=== PATIENT | male | born 1965 | race Caucasian/White ===

== ENCOUNTER 2025-05-27 13:41 | Inpatient (IN) | payer OTHER, SELFPAY ==
[2025-05-27] VITALS (7 sets, daily range): BP systolic 122–146; BP diastolic 77–97; BMI 17.9; BMI 17.6
--- NOTE | 2025-05-27 09:19 | ED.GENMED ---
History of Present Illness
<Oxana Leyva, COMMUNITY THEATER ACTOR - Last Filed: 05/27/25 14:49>
General
Chief Complaint: Abdominal Pain
Source: patient
Exam Limitations: none
Time Seen by Provider: 05/27/25 09:00
Nursing documentation reviewed up to this point in time: agreed with
History of Present Illness
History of Present Illness:
60-year-old male smoker pack a day, occasional alcohol, with no past medical history states he has not seen a doctor in years presents for right lower quadrant abdominal pain that has been gradually worsening over the past 2 weeks. He denies fever
or chills. Denies nausea or vomiting. Denies chest pain or shortness of breath. His last bowel movement was 4 days ago and he usually goes daily. His appetite has been poor. He took Tylenol prior to arrival and states the pain is now 3/10,
improving.
Past History
<Oxana Leyva, COMMUNITY THEATER ACTOR - Last Filed: 05/27/25 14:49>
Past History
ED Past Medical History: None
Social History
Tobacco: Smoker
Alcohol: Occasional
Personal: Single
Living: alone
Employment: Not employed
Review of Systems
<Oxana Leyva, COMMUNITY THEATER ACTOR - Last Filed: 05/27/25 14:49>
Review of Systems
Allergies reviewed?: Yes
All Other Systems: ROS reviewed and negative except as documented in HPI and ROS
Constitutional: Denies fever
Respiratory: Denies trouble breathing
Cardiac: Denies chest pain
ABD/GI: Reports abdominal pain, constipated and anorexia; Denies nausea, vomiting, diarrhea, bloody stools or black stools
: Denies dysuria or difficulty voiding
Musculoskeletal: Reports no symptoms
Skin: Reports no symptoms
Neurological: Reports no symptoms
Phy Exam
<Oxana Leyva, COMMUNITY THEATER ACTOR - Last Filed: 05/27/25 14:49>
Physical Exam
Physical Exam:
GENERAL: No acute distress. A&Ox3.
CONSTITUTIONAL: Afebrile.
EYES: clear, conjunctivae normal
ENMT: moist mucus membranes, Pharynx nl
RESPIRATORY: Regular respirations, nonlabored, lungs clear.
CARDIOVASCULAR: Regular rate and rhythm, no murmurs, no rubs.
GI: Soft, tender right abdomen with guarding, normal BS
MUSCULOSKELETAL: Moves with ease. Well perfused.
SKIN: Warm, dry, pink
PSYCH: Normal mood and affect. Well kept, interactive and appropriate
NEUROLOGIC: Awake, alert and oriented. No focal neurological deficits
Course
Adityalt;Oxana Leyva, COMMUNITY THEATER ACTOR - Last Filed: 05/27/25 14:49>
Orders/Labs/Results
Orders:
Orders
05/27/25 09:16
Iohexol [Omnipaque] See Protocol PO NOW STA
US Abdomen - Appendix Only Urgent
Comment:
Reason For Exam: RLQ pain
05/27/25 09:17
CT Abd/pel W Iv And Oral Contr Urgent
Comment:
Reason For Exam: RLQ pain
05/27/25 09:19
0.9% Sodium Chloride 1000 ml [Nss] 1,000 ml IV BOLUS
05/27/25 09:23
Complete Blood Count/With Diff Urgent
Comprehensive Metabolic Panel Urgent
Lipase Urgent
05/27/25 11:28
Urinalysis Reflex To Culture Urgent
Date Specimen was Collected: 05/27/25
Time Specimen was Collected: 10:38
Urine Microscopic Reflex Cult Urgent
05/27/25 13:05
Piperacillin/Tazo 3.375 Gram [Zosyn] 3.375 gram in 50 ml IV NOW
05/27/25 13:08
HYDROmorphone [Dilaudid] 1 mg IV NOW STA
Ondansetron Injectable [Zofran] 4 mg IV NOW STA
05/27/25 13:09
Consult Surgery [SURGICAL CONSULT] Urgent
Consulting Provider: Claudio Faustin
Was physician already notified: Yes
Reason for consult: Multiple intra-abdominal abscesses
05/27/25 13:10
Consult Interventional Radiology [IRAD CONSULT] Urgent
Consulting Provider: Terence Downey
Was physician already notified: Yes
Procedure being ordered, including laterality if applicable: Multiple intra-abdominal abscesses
Acknowledgement that appropriate orders are entered: Yes
05/27/25 13:16
Admit/Transfer Patient As Directed
Co-Sign Provider:
Level of Care: Inpatient admission
Assign to:: Medical/Surgical
Physician / Group: rony
Diagnosis: pelvic abscesses
Reason for Hospitalization: pelvic abscesses
Expected length of stay greater than two midnights?: Yes
ELOS- Estimated Length of Stay in days: 2
I certify the patient meets the requirements for IP care: Yes
PRN Pain Medication Management As Directed
May give lesser potent ordered pain med per pt: Yes
preference::
Protocol:: Medication orders for pain may be administered in a
manner that supports deferring to patient preference
when the pt is:
- Requesting an ordered lesser potent pain medication.
Least to most potent pain medications are defined
as: acetaminophen < NSAID < tramadol < opioids
(morphine, oxycodone, hydromorphone).
- Requesting a lesser dose of the same medication IF
ORDERED.
- Requesting a less intrusive route of administration
if both routes are prescribed by the provider (PO <
IV).
05/27/25 13:17
Code Status As Directed
Resuscitation Status: Full Code
Abnormal Lab Results
05/27/25 05/27/25
09:23 11:28
WBC 15.5 H 10^3/uL
(4.8-10.8)
RBC 4.39 L 10^6/uL
(4.70-6.10)
Hgb 12.8 L g/dL
(13.0-18.0)
MCHC 32.0 L g/dL
(33.0-37.0)
RDW 14.7 H %
(11.5-14.5)
Plt Count 666 H 10^3/uL
(130-400)
Abs Immat Gran (auto) 0.1 H 10^3/uL
(0-0.05)
Absolute Neuts (auto) 12.5 H 10^3/uL
(1.4-6.5)
Absolute Monos (auto) 1.3 H 10^3/uL
(0.1-0.6)
Neutrophils % 80.7 H %
(42.2-75.2)
Lymphocytes % 10.1 L %
(20.5-51.1)
Sodium 131 L mmol/L
(135-145)
Carbon Dioxide 20 L mmol/L
(22-30)
Creatinine 0.6 L mg/dL
(0.7-1.3)
Glucose 103 H mg/dl
(70-99)
AST 15 L U/L
(17-59)
Urine Ketones 2+ A
(Negative)
Urine Albumin (Reflex) 2+ A
(Neg - Trace)
05/27/25 09:23
05/27/25 09:23
Vital Signs
Initial and Last Documented VS:
Initial Vital Signs
Temp Pulse Resp BP Pulse Ox
98.8 F 123 16 122/97 98
05/27/25 08:30 05/27/25 08:30 05/27/25 08:30 05/27/25 08:30 05/27/25 08:30
Last Documented Vital Signs
Temp Pulse Resp BP Pulse Ox
99 F 88 12 146/88 99
05/27/25 13:29 05/27/25 11:16 05/27/25 11:16 05/27/25 11:16 05/27/25 11:16
[employer] consulted with Physician
[employer] consulted with physician?: Yes
Name of Physician Consulted: Sher
<Thien Olivarez, DO - Last Filed: 05/27/25 13:43>
Orders/Labs/Results
Orders:
Orders
05/27/25 09:16
Iohexol [Omnipaque] See Protocol PO NOW STA
US Abdomen - Appendix Only Urgent
Comment:
Reason For Exam: RLQ pain
05/27/25 09:17
CT Abd/pel W Iv And Oral Contr Urgent
Comment:
Reason For Exam: RLQ pain
05/27/25 09:19
0.9% Sodium Chloride 1000 ml [Nss] 1,000 ml IV BOLUS
05/27/25 09:23
Complete Blood Count/With Diff Urgent
Comprehensive Metabolic Panel Urgent
Lipase Urgent
05/27/25 11:28
Urinalysis Reflex To Culture Urgent
Date Specimen was Collected: 05/27/25
Time Specimen was Collected: 10:38
Urine Microscopic Reflex Cult Urgent
05/27/25 13:05
Piperacillin/Tazo 3.375 Gram [Zosyn] 3.375 gram in 50 ml IV NOW
05/27/25 13:08
HYDROmorphone [Dilaudid] 1 mg IV NOW STA
Ondansetron Injectable [Zofran] 4 mg IV NOW STA
05/27/25 13:09
Consult Surgery [SURGICAL CONSULT] Urgent
Consulting Provider: Claudio Faustin
Was physician already notified: Yes
Reason for consult: Multiple intra-abdominal abscesses
05/27/25 13:10
Consult Interventional Radiology [IRAD CONSULT] Urgent
Consulting Provider: Terence Downey
Was physician already notified: Yes
Procedure being ordered, including laterality if applicable: Multiple intra-abdominal abscesses
Acknowledgement that appropriate orders are entered: Yes
05/27/25 13:16
Admit/Transfer Patient As Directed
Co-Sign Provider:
Level of Care: Inpatient admission
Assign to:: Medical/Surgical
Physician / Group: rony
Diagnosis: pelvic abscesses
Reason for Hospitalization: pelvic abscesses
Expected length of stay greater than two midnights?: Yes
ELOS- Estimated Length of Stay in days: 2
I certify the patient meets the requirements for IP care: Yes
PRN Pain Medication Management As Directed
May give lesser potent ordered pain med per pt: Yes
preference::
Protocol:: Medication orders for pain may be administered in a
manner that supports deferring to patient preference
when the pt is:
- Requesting an ordered lesser potent pain medication.
Least to most potent pain medications are defined
as: acetaminophen < NSAID < tramadol < opioids
(morphine, oxycodone, hydromorphone).
- Requesting a lesser dose of the same medication IF
ORDERED.
- Requesting a less intrusive route of administration
if both routes are prescribed by the provider (PO <
IV).
05/27/25 13:17
Code Status As Directed
Resuscitation Status: Full Code
Abnormal Lab Results
05/27/25 05/27/25
09:23 11:28
WBC 15.5 H 10^3/uL
(4.8-10.8)
RBC 4.39 L 10^6/uL
(4.70-6.10)
Hgb 12.8 L g/dL
(13.0-18.0)
MCHC 32.0 L g/dL
(33.0-37.0)
RDW 14.7 H %
(11.5-14.5)
Plt Count 666 H 10^3/uL
(130-400)
Abs Immat Gran (auto) 0.1 H 10^3/uL
(0-0.05)
Absolute Neuts (auto) 12.5 H 10^3/uL
(1.4-6.5)
Absolute Monos (auto) 1.3 H 10^3/uL
(0.1-0.6)
Neutrophils % 80.7 H %
(42.2-75.2)
Lymphocytes % 10.1 L %
(20.5-51.1)
Sodium 131 L mmol/L
(135-145)
Carbon Dioxide 20 L mmol/L
(22-30)
Creatinine 0.6 L mg/dL
(0.7-1.3)
Glucose 103 H mg/dl
(70-99)
AST 15 L U/L
(17-59)
Urine Ketones 2+ A
(Negative)
Urine Albumin (Reflex) 2+ A
(Neg - Trace)
05/27/25 09:23
05/27/25 09:23
Vital Signs
Initial and Last Documented VS:
Initial Vital Signs
Temp Pulse Resp BP Pulse Ox
98.8 F 123 16 122/97 98
05/27/25 08:30 05/27/25 08:30 05/27/25 08:30 05/27/25 08:30 05/27/25 08:30
Last Documented Vital Signs
Temp Pulse Resp BP Pulse Ox
99 F 88 12 146/88 99
05/27/25 13:29 05/27/25 11:16 05/27/25 11:16 05/27/25 11:16 05/27/25 11:16
<Oxana Leyva COMMUNITY THEATER ACTOR - Last Filed: 05/27/25 14:49>
MDM/Problems Addressed
Differential Diagnosis Includes:
Appendicitis, bowel obstruction, diverticulitis, colitis, malignancy
MDM/Problems Addressed:
60-year-old male smoker pack a day, occasional alcohol, with no past medical history states he has not seen a doctor in years presents for right lower quadrant abdominal pain that has been gradually worsening over the past 2 weeks. He denies fever
or chills. Denies nausea or vomiting. Denies chest pain or shortness of breath. His last bowel movement was 4 days ago and he usually goes daily. His appetite has been poor. He took Tylenol prior to arrival and states the pain is now 3/10,
improving.
Patient is mildly ill-appearing, almost cachectic
CBC: WBC 15.5
CMP: No clinically significant abnormality
ultrasound radiology report read: Appendix was not visualized
moving on to CAT scan patient, has had p.o. prep
1:[address] abd/pelvis with po and IV contrast: Radiaology report read: IMPRESSION:
Complex CT appearance of the pelvis with multiple rim enhancing pelvic abscesses measuring up to 9.0 cm in the posterior pelvis, 4.9 cm in the right anterior pelvis, and 3.7 cm in the upper pelvis. The collection in the upper pelvis also contains
gas and a small amount of hyperattenuating material that may represent enteric contrast, raising the possibility for a contained perforation. This is in close proximity to small bowel loops in the lower abdomen and is also adjacent to a region of
ill-defined nodular enhancing soft tissue that may represent inflammatory soft tissue/phlegmon or malignant soft tissue. The imaged appendix appears to be within normal limits and a perforated appendicitis would be considered unlikely. Wall
thickening of the sigmoid colon and urinary bladder may be infectious or reactive from the nearby inflammatory process.
Case discussed with Dr. Olivarez who reviewed films
Plan: Admit: Multiple pelvic abscesses questionable contained perforation
Hospitalist, General Surgeon/colorectal doctor Ramin and IR notified of admission.
<Oxana Leyva COMMUNITY THEATER ACTOR - Last Filed: 05/27/25 14:49>
*Pulse Oximetry
SaO2: 98
Oxygen Mode of Delivery: Room air
Patient hypoxic: no
*Critical Care Note
Total Time (30-74mins, 75-104mins- exclusive of procedures): Not Applicable
ED Attending Note
<Oxana Leyva COMMUNITY THEATER ACTOR - Last Filed: 05/27/25 14:49>
-
Portions of this chart may have been created with voice recognition software.� Occasional wrong word or��sound alike� substitutions may have occurred due to the inherent limitations of voice recognition software.
<Thien Olivarez DO - Last Filed: 05/27/25 13:43>
ED Attending Note
Patient seen and examined by attending physician: Yes
I performed the substantive portion of visit, reviewed & personally made and approve the management plan that is documented in note by myself or NANCY.: Yes
ED Attending Note:
I evaluated the patient at bedside. The patient appears somewhat weak and debilitated. Leukocytosis noted and I personally viewed CT imaging and discussed findings with patient. Planning for admission to the hospital.
Discharge Plan
Departure
Patient Disposition: Admit
Date of Disposition: 05/27/25
Time of Disposition: 13:11
Admit to: Med/Surg
Presentation/result/management discussed w/ accepting MD/DO: Hospitalist
Condition: Serious
Discharge Problem:
Intra-abdominal abscess, Abdominal pain
Interventions
Interventions:
*Risk Screen - Suicide Last Done: 05/27/25 08:30
*Neglect/Abuse Screening Last Done: 05/27/25 08:30
UG-Otfnia-Mfacjidmcg Assessment Last Done: 05/27/25 09:36
[2025-05-27] MEDS: OMNIPAQUE 50 ML PO (09:28)
[2025-05-27] MEDS: NSS 1000 IV ×2 (09:28→16:53)
[2025-05-27 09:43] LABS: ALT (SGPT) 13 U/L (0-50); AST (SGOT) 15 U/L (17-59); Albumin 3.7 g/dl (3.5-5.0); Alkaline Phosphatase 111 U/L (38-126); Blood Urea Nitrogen 9 mg/dl (9-20); Calcium 10.0 mg/dl (8.4-10.2); Carbon Dioxide 20 mmol/L (22-30); Chloride 101 mmol/L (98-107); Estimated Creatinine Clearance 103 ml/min; Glucose 103 mg/dl (70-99); Lipase 69 U/L (23-300); Potassium 4.5 mmol/L (3.5-5.1); Sodium 131 mmol/L (135-145); Total Protein 6.7 g/dl (6.3-8.2); eGFR > 60.00
[2025-05-27 09:52] LABS: Hematocrit 40.0 % (39.0-52.0); Hemoglobin 12.8 g/dL (13.0-18.0); Mean Corp Hgb Conc. 32.0 g/dL (33.0-37.0); Mean Corpuscular Volume 91.1 fL (80.0-94.0); Platelet Count 666 10^3/uL (130-400); Red Cell Dist. Width 14.7 % (11.5-14.5)
[2025-05-27 09:53] LABS: Nucleated Red Blood Cells % 0 % (-)
[2025-05-27 11:51] LABS: Urine Character Clear (Clear)
[2025-05-27 13:04] LABS: Urine Red Blood Cell 0-2 /HPF (0-2); Urine White Cell 0-2 /HPF (0-5)
--- NOTE | 2025-05-27 13:20 | HPS.HSE ---
Family Physician
-
Family Physician: Niyah Green
Chief Complaint
-
abdominal pain
History of Present Illness
60-year-old male past medical history of smoking, occasional alcohol use presenting with right lower quadrant abdominal pain ongoing for the past 2 weeks. No fevers or chills. No nausea or vomiting. No chest pain or shortness of breath. Last
bowel movement was 4 days ago. Poor appetite.
No prior surgeries.
He smokes half a pack of cigarettes per day. Drinks alcohol occasionally but no alcohol in 2 weeks. Denies drugs.
Medical History
Past Medical History
Past Medical History: Reports Other (smoking, occasional alcohol use)
Past Surgical History: Reports None
Social History
Tobacco: Smoker
Alcohol: Occasional
Drug: None
Family History
Family History: Not pertinent
Allergies / Home Medications
Allergies reflects when Allergies were last updated in [facility].
Home Medications with original date entered in [facility]
Allergy/Medication List:
Allergies
Allergy/AdvReac Type Severity Reaction Status Date / Time
No Known Allergies Allergy Unverified 05/27/25 09:23
Review of Systems
-
History Source: Patient
A 12 point ROS was completed and negative except as noted: Yes
Constitutional: Reports No Symptoms
EENT: Reports No Symptoms
Respiratory: Reports No Symptoms
Cardiac: Reports No Symptoms
Abdomen/GI: Reports See HPI
: Reports No Symptoms
Musculoskeletal: Reports No Symptoms
Skin: Reports No Symptoms
Neurological: Reports No Symptoms
Endocrine: Reports No Symptoms
Hematologic/Lymphatic: Reports No Symptoms
Psych: Reports No Symptoms
Physical Exam
Vital Signs
Vital Signs
Temp Pulse Resp BP Pulse Ox
98.8 F 88 12 146/88 99
05/27/25 08:30 05/27/25 11:16 05/27/25 11:16 05/27/25 11:16 05/27/25 11:16
Physical Exam
General: Well Developed, Well Nourished and No Apparent Distress
HEENT: NormoCephalic, Moist mucous membranes and Atraumatic
Respiratory: Clear
Cardiac: S1/S2 and Regular Rhythm; No Murmur or Rub
GI: Soft, Non Distended, Normal Bowel Sounds and Tender (RLQ ); No Organomegaly
Rectal: Deferred by Provider
Musculoskeletal: No Clubbing, No Cyanosis and No Edema
Skin: No Rash
Neuro: Nonfocal/grossly intact
Laboratory Results
-
05/27/25 09:23
05/27/25 09:23
Laboratory Results
Total Bilirubin 0.7 mg/dl (0.2-1.3) 05/27/25 09:23
AST 15 U/L (17-59) L 05/27/25 09:23
ALT 13 U/L (0-50) 05/27/25 09:23
Alkaline Phosphatase 111 U/L (38-126) 05/27/25 09:23
Lipase 69 U/L (23-300) 05/27/25 09:23
Data Reviewed
-
Lab Data: Labs Reviewed by me
Old Records: Reviewed
Impression/Plan
-
IMPRESSION:
PLAN:
# Multiple rim-enhancing pelvic abscesses with possible contained perforation
-Abdominal ultrasound without any notable finding
- CT abdomen pelvis shows multiple rim-enhancing pelvic abscesses measuring up to 9 cm, 4.9 cm in the right anterior pelvis, 3.7 cm in the upper pelvis, collection in the upper pelvis also contains gas and small amount of hyperattenuating material
that may represent enteric contrast possibly for contained perforation, close proximity to small bowel loops in the lower abdomen adjacent to region of ill-defined nodular enhancing soft tissue that may represent inflammatory soft tissue phlegmon or
malignant soft tissue, wall thickening of the sigmoid colon urinary bladder may be infectious or reactive
- Leukocytosis
- Urinalysis unremarkable
- N.p.o.
- IV fluids
-Zosyn
- IR consulted for drainage
-Dilaudid for pain
- Colorectal surgery consulted
History of smoking
Occasional alcohol use
- No alcohol use in 2 weeks
Full code
DVT prophylaxis�heparin
N.p.o.
[2025-05-27] MEDS: DILAUDID 1 MG IV ×2 (13:24→17:18)
[2025-05-27] MEDS: ZOFRAN 4 MG IV (13:24)
[2025-05-27] MEDS: ZOSYN 50 IV ×2 (13:24→19:48)
--- NOTE | 2025-05-27 14:03 | CON.GS ---
Consultation
-
Date/Time Consultation Performed: 05/27/25 1400
Medical History
-
Chief Complaint: abdominal pain
History of Present Illness:
Mr Duran is a 60 yo 1/2 ppd smoker who has never been hospitalized or had surgery and has not seen a doctor in some time who presents with abdominal pain for the last 2 weeks or more. He notes the pain has been diffuse and sometimes hurting in one
place more than the other. He denies fevers or chills. He has been taking Tylenol intermittently for some relief. He has been eating very little for the past several weeks but denies nausea or vomiting. He reports regular BM's previously, but has
not passed a BM x3-4 days. He has been intermittently passing flatus. He denies voiding difficulty. He does not own a scale but feels he may have been losing some weight since this all began but is unsure. Yesterday, his pain worsened and became
more localized to the right suprapubic area with associated tenderness on exam today in the ED.
Past Medical History
Past Medical History: None
Past Surgical History: None and Other (no prior colonoscopy)
Social History
Tobacco: Smoker (1/2 ppd)
Alcohol: Occasional
Personal: Single
Living: Alone
Family History
Family History: Reviewed & Not Pertinent
Allergies / Home Medications
Allergy/AdvReac Type Severity Reaction Status Date / Time
No Known Allergies Allergy Unverified 05/27/25 09:23
Review of Systems
-
History Source: Patient
All other systems: Negative unless noted
A 10 point review of systems was completed, and was negative except as per HPI.
Physical Exam
Vital Signs
Temp Pulse Resp BP Pulse Ox
99 F 88 12 146/88 99
05/27/25 13:29 05/27/25 11:16 05/27/25 11:16 05/27/25 11:16 05/27/25 11:16
05/26/25 05/27/25 05/28/25
06:59 06:59 06:59
Actual Weight 55 kg
Body Mass Index (BMI) 17.9
Lab Results
05/27/25:23
05/27/25:
WBC 15.5 10^3/uL (4.8-10.8) H 05/27/25:
Hgb 12.8 g/dL (13.0-18.0) L 05/27/25:
Hct 40.0 % (39.0-52.0) 05/27/25:
Plt Count 666 10^3/uL (130-400) H 05/27/25:
Abs Immat Gran (auto) 0.1 10^3/uL (0-0.05) H 05/27/25:
Neutrophils % 80.7 % (42.2-75.2) H 05/27/25:
Physical Exam
General: No Apparent Distress and Comfortable; Negative Well Nourished (underweight)
HEENT: Moist Mucous Membranes
GI: Soft, Tender (right suprapubic) and Distended (minimal)
Skin: Warm and Dry
Neuro: Awake, Alert and AO x 3
Psych: Calm
Data Reviewed
-
CT Scan: Image Personally Visualized and interpreted, Report Reviewed by me, Discussed with Physician and Discussed with Patient
Labs: Labs Reviewed by me, Discussed with Physician and Discussed with Patient
Old Records: Reviewed
Assessment / Plan
-
Mr Duran is a 60 yo 1/2 ppd smoker who has never been hospitalized or had surgery and has not seen a doctor in some time who presents with abdominal pain for the last 2 weeks or more now more localized to the right suprapubic area. No n/v but poor
PO intake, ?weight loss (BMI <18). No bm x3-4 days but passing flatus. Leukocytosis present with WBC of 15.5, mild microcytic anemia with thrombocytosis. Mild hyponatremia with metabolic acidosis on BMP. Tachycardic on arrival, now resolved.
Afebrile with stable BP.
CT imaging reviewed with abdominal abscesses noted posterior pelvis of 9 x 4.9cm, unclear if communicating with a 3.7cm abscess in the upper pelvis which contains gas and possibly oral contrast administered prior the study suggestive of a contained
small bowel perforation. This upper pelvic abscess is adjacent to a soft tissue density that is poorly defined (phlegmon vs malignancy). Reactive thickening of surrounding structures. Appendix normal. Unclear etiology but suspect malignancy vs small
bowel diverticulum.
Plan:
IR consulted for abscess drainage, will request cytology as well as culture
Keep NPO
Started on IV Zosyn in the ED will continue
Trend labs, check CEA, CA19-9 in am
No emergent surgery planned today, will attempt IR drainage first
[2025-05-27] MEDS: TUMS CHEWABLE TABLET 200 MG PO (14:15)
--- NOTE | 2025-05-27 16:10 | EDCM ---
CM reviewed chart and met with pt bedside in ED. Lives alone in 1 story home with basement, 2 [address].
Independent in ADLs, personal care and ambulation at baseline. No assistive devices, no DME.
Admits he has not see a physician in a long time. Believes he has prescription coverage but has never used it.
No hx VN or SNF
PCP: Niyah Green, pt is not sure if he has ever seen her
Pharmacy: [facility]
Anticipate discharge home, CM will continue to follow ofr any discharge planning needs.
[2025-05-27] MEDS: PROTONIX 40 MG PO (17:17)
--- NOTE | 2025-05-27 17:45 | PTCARENOTE ---
Pt arrived to [facility] on a stretcher. Pt ambulated from stretcher to bed w/o incident. Rhonchi/diminished at the bases at 99% RA. Pt voided on admission. IVF hung. NPO. 1x order of dilauded for pain and 1x order protonix for indigestion. Admission
questions answered. Bed locked and in lowest position. Care ongoing.
[2025-05-27] MEDS: HEPARIN 5000 UNITS SC (19:49)
[2025-05-27] MEDS: DILAUDID 0.5 MG IV (21:27)
[2025-05-28] VITALS (13 sets, daily range): BP systolic 74–163; BP diastolic 66–90; BMI 17.6
[2025-05-28] MEDS: DILAUDID 0.5 MG IV ×5 (01:27→21:13)
[2025-05-28] MEDS: ZOSYN 50 IV ×4 (01:28→19:14)
[2025-05-28 06:30] LABS: Hematocrit 36.4 % (39.0-52.0); Hemoglobin 11.3 g/dL (13.0-18.0); Mean Corp Hgb Conc. 31.0 g/dL (33.0-37.0); Mean Corpuscular Volume 93.6 fL (80.0-94.0); Nucleated Red Blood Cells % 0 % (-); Platelet Count 645 10^3/uL (130-400); Red Cell Dist. Width 15.1 % (11.5-14.5)
[2025-05-28 06:47] LABS: ALT (SGPT) 11 U/L (0-50); AST (SGOT) 15 U/L (17-59); Albumin 3.1 g/dl (3.5-5.0); Alkaline Phosphatase 160 U/L (38-126); Blood Urea Nitrogen 6 mg/dl (9-20); Calcium 9.0 mg/dl (8.4-10.2); Carbon Dioxide 23 mmol/L (22-30); Chloride 101 mmol/L (98-107); Estimated Creatinine Clearance 102 ml/min; Glucose 72 mg/dl (70-99); Potassium 4.8 mmol/L (3.5-5.1); Sodium 133 mmol/L (135-145); Total Protein 5.8 g/dl (6.3-8.2); eGFR > 60.00
[2025-05-28 07:17] LABS: CEA 5.14 ng/ml
[2025-05-28] MEDS: NSS 1000 IV (07:52)
[2025-05-28] MEDS: HEPARIN 5000 UNITS SC ×2 (07:52→19:13)
[2025-05-28 09:18] LABS: Triglycerides 131 mg/dl (10-149)
[2025-05-28 09:57] LABS: Prealbumin (Transthyretin) 10.4 mg/dl (17.6-36.0)
--- NOTE | 2025-05-28 10:00 | W.PN.GS2 ---
Addendum entered and electronically signed by Toni Haskins MD 05/28/25 10:55:
I saw and examined the patient independently.
The Gritting Machine Operator's note was reviewed and I agree with the note, assessment and plan except where noted below.
Comment: 60-year-old male presents with abdominal pain for 2 weeks and found to have intra-abdominal abscesses unclear etiology. Perforated small bowel Meckel's diverticulum versus sigmoid diverticulitis. Clinically stable, exam benign.
N.p.o., IV fluids, IV antibiotics. Banana bag ordered.
IR consult for drainage, he does have a window for at least one of the pockets though there is an intra loop collection that will be difficult to drain.
Will plan for a Gastrografin enema at some point this admission once his contrast from the CT scan has washed through to rule out sigmoid diverticulitis.
Original Note:
Today's Communication / Plan
-
IR drainage of abscess
Keep NPO and on IV abx
Assessment / Plan
-
Mr Durna is a 60 yo 1/2 ppd smoker who has never been hospitalized or had surgery and has not seen a doctor in some time who presents with abdominal pain for the last 2 weeks or more now more localized to the right suprapubic area. No n/v but poor
PO intake, ?weight loss (BMI <18). No bm x3-4 days but passing flatus.
CT imaging with intraabdominal abscesses noted; posterior pelvis of 9 x 4.9cm, unclear if communicating with a 3.7cm abscess in the upper pelvis which contains gas and possibly oral contrast administered prior the study. There is an upper pelvic
abscess is adjacent to a soft tissue density that is poorly defined. Reactive thickening of surrounding structures including sigmoid colon. Appendix normal.
Contained bowel perforation; Unclear if from a large vs small bowel diverticulum vs less likely small bowel malignancy (CEA 5.14, Ca19-9 pending).
Leukocytosis present and trending up
Microcytic anemia
No fevers, no further tachycardia, BP stable
Nutritional labs send with low albumin/prealbumin. Folate, thiamine, b12 and iron panel pending
Plan:
IR consulted for abscess drainage, will request cytology as well as culture
Banana bag x1 then resume IV NSS.
Nutrition consult; low BMI, low albumin/prealbumin
Keep NPO
Continue IV abx
Trend labs
Eventual Gastrografin enema to better differentiate location of perforation
No emergent surgery planned today but may require later this admission pending patient course and source of perforation
Subjective Data
-
Date of Service: May 28, 2025
Pt seen and examined at bedside with Dr. Philip. Moreno n/v. Pain improved overall.
Objective Data
-
Intake and Output
05/27/25 05/28/25 05/29/25
06:59 06:59 06:59
Intake Total 1080 / 1080
Balance 1080 / 1080
Intake:
IV fluids (Total) 980 / 980
IV piggybacks 100 / 100
Other:
Number of approximated MODERATE 2
amounts of urine
Vital Signs
Temp Pulse Resp BP Pulse Ox
99.0 F 80 18 163/78 97
05/28/25 07:23 05/28/25 07:23 05/28/25 07:23 05/28/25 07:23 05/28/25 07:23
Lab Results
05/28/25 05:39
05/28/25 05:39
Calcium 9.0 mg/dl (8.4-10.2) 05/28/25 05:39
Total Bilirubin 0.6 mg/dl (0.2-1.3) 05/28/25 05:39
AST 15 U/L (17-59) L 05/28/25 05:39
ALT 11 U/L (0-50) 05/28/25 05:39
Alkaline Phosphatase 160 U/L (38-126) H 05/28/25 05:39
Total Protein 5.8 g/dl (6.3-8.2) L 05/28/25 05:39
Albumin 3.1 g/dl (3.5-5.0) L 05/28/25 05:39
Physical Exam
-
NAD, thin
ABD soft, tender suprapubically, nd
[2025-05-28] MEDS: MULTIVITAMIN 1011 ML IV (10:18)
[2025-05-28] MEDS: MULTIVITAMIN 1011 MG IV (10:18)
[2025-05-28 10:57] LABS: INR 1.03; PT 13.8 Sec (11.4-14.6)
[2025-05-28 11:00] LABS: Folate 12.1 ng/ml (2.76-20); Vitamin B12 871 pg/ml (239-931)
[2025-05-28 11:25] LABS: Iron 37 ug/dl (49-181)
[2025-05-28 11:34] LABS: Total Iron Binding Capacity 178 ug/dl (261-462)
--- NOTE | 2025-05-28 11:46 | W.PN.HOSP.TC ---
Today's Communication/Plan
-
monitor vitals
see plan
cw IVF
IR for draiange
cw abx
Monitor leukocytosis
Assessment / Plan
Assessment / Plan
General: Well Developed, Well Nourished and No Apparent Distress
HEENT: NormoCephalic, Moist mucous membranes and Atraumatic
Respiratory: Clear
Cardiac: S1/S2 and Regular Rhythm; No Murmur or Rub
GI: Soft, Non Distended, Normal Bowel Sounds and Tender (RLQ )
Rectal: Deferred by Provider
Musculoskeletal: No Clubbing, No Cyanosis and No Edema
Skin: No Rash
Neuro: Nonfocal/grossly intact
Multiple rim-enhancing pelvic abscesses with possible contained perforation
Sepsis (leukocytosis, tachycardia) likely 2/2 above. Blood culture not checked on admission. Check now
-Abdominal ultrasound without any notable finding
- CT abdomen pelvis shows multiple rim-enhancing pelvic abscesses measuring up to 9 cm, 4.9 cm in the right anterior pelvis, 3.7 cm in the upper pelvis, collection in the upper pelvis also contains gas and small amount of hyperattenuating material
that may represent enteric contrast possibly for contained perforation, close proximity to small bowel loops in the lower abdomen adjacent to region of ill-defined nodular enhancing soft tissue that may represent inflammatory soft tissue phlegmon or
malignant soft tissue, wall thickening of the sigmoid colon urinary bladder may be infectious or reactive
- Leukocytosis
- Urinalysis unremarkable
- N.p.o.
- IV fluids
-Zosyn
- IR consulted for drainage; postdrainage likely will need ID evaluation for antibiotics
-Dilaudid for pain
- surgery following
History of smoking
Refusing nicotine patch
Occasional alcohol use
- No alcohol use in 2 weeks
Full code
DVT prophylaxis�heparin
N.p.o.
Anticipated Discharge: > 48 hours
Subjective/Interval History
-
Date of Service: May 28, 2025
has pain
Objective Data
-
Labs:
Laboratory Results
05/28/25 05/28/25
05:39 10:32
WBC 18.1 H
Hgb 11.3 L
Hct 36.4 L
Plt Count 645 H
PT 13.8
INR 1.03
Sodium 133 L
Potassium 4.8
Chloride 101
Carbon Dioxide 23
BUN 6 L
Creatinine 0.6 L
Glucose 72
Calcium 9.0
Total Bilirubin 0.6
AST 15 L
ALT 11
Alkaline Phosphatase 160 H
Vital Signs:
Vital Signs
Temp Pulse Resp BP Pulse Ox
99.0 F 80 18 163/78 97
05/28/25 07:23 05/28/25 07:23 05/28/25 07:23 05/28/25 07:23 05/28/25 07:23
I&O
05/27/25 05/28/25 05/29/25
06:59 06:59 06:59
Intake Total 1080 / 1080
Balance 1080 / 1080
[2025-05-28] MEDS: APRESOLINE 5 MG IV (12:48)
--- NOTE | 2025-05-28 14:20 | CM ---
CM following re: discharge planning.
Reviewed pt's chart.
Per chart review, IR drainage of abscess, continue supportive care.
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
D/C plan: home with anticipated no needs.
CM will follow with discharge plan updates as hospitalization progresses
--- NOTE | 2025-05-28 16:46 | W.PN.UPDATE ---
Update Note
Progress Note Update
CT guided pelvic drainage catheter placed, yielding 130 cc of bloody purulent fluid. Sent for laboratory analysis.
[2025-05-28] MEDS: D5LR 1000 IV (21:15)
[2025-05-29] MEDS: ZOSYN 50 IV ×4 (01:12→19:23)
[2025-05-29] MEDS: DILAUDID 0.5 MG IV ×5 (01:25→23:33)
[2025-05-29] MEDS: D5LR 1000 IV ×2 (06:08→22:26)
[2025-05-29 07:25] VITALS: BP 143/72
[2025-05-29] MEDS: HEPARIN 5000 UNITS SC ×2 (07:32→19:23)
[2025-05-29 08:09] LABS: ALT (SGPT) < 10 U/L (0-50); AST (SGOT) 13 U/L (17-59); Albumin 2.5 g/dl (3.5-5.0); Alkaline Phosphatase 183 U/L (38-126); Blood Urea Nitrogen 4 mg/dl (9-20); Calcium 8.6 mg/dl (8.4-10.2); Carbon Dioxide 24 mmol/L (22-30); Chloride 102 mmol/L (98-107); Estimated Creatinine Clearance 102 ml/min; Glucose 101 mg/dl (70-99); Potassium 4.0 mmol/L (3.5-5.1); Sodium 129 mmol/L (135-145); Total Protein 4.9 g/dl (6.3-8.2); eGFR > 60.00
[2025-05-29 08:34] LABS: Hematocrit 31.4 % (39.0-52.0); Hemoglobin 9.8 g/dL (13.0-18.0); Mean Corp Hgb Conc. 31.2 g/dL (33.0-37.0); Mean Corpuscular Volume 90.5 fL (80.0-94.0); Nucleated Red Blood Cells % 0 % (-); Platelet Count 508 10^3/uL (130-400); Red Cell Dist. Width 14.9 % (11.5-14.5)
--- NOTE | 2025-05-29 09:23 | PN.CDI ---
CDI
- -
CDI:
Physician Documentation Request
Admit Date: 05/27/25 13:41
Dear Doctor,
Patient admitted for pelvic abscess.
ER Physician Documentation: 'Patient is mildly ill-appearing'
Please review the following and provide your response in the progress notes.
Clinical Indicators:
Height: 5' 9'
Weight: 119 lbs
BMI: 17.6
If possible, please provide an associated diagnosis related to the abnormal BMI, such as:
Cachectic
Underweight
BMI is not significant
Other
BMI < or = to 19.9
Underweight
Weight Loss
Cachectic
Anorexia
Use of terms such as suspected, likely, concern for, or probable (associated with a specific diagnosis that is being evaluated, monitored, or treated as if it exists) are acceptable and can be coded in the inpatient setting, when documented at the
time of discharge.
Thank you,
Collette Moura RN, BSN
CDI Specialist
Available via [facility] text
Please use your independent medical judgment in providing your response.
--- NOTE | 2025-05-29 09:56 | W.PN.GS2 ---
Today's Communication / Plan
-
-- Clears
-- X-ray abdomen
-- Abx: Zosyn
Assessment / Plan
-
Patient is a 60 yo M p/w abdominal pain for the last [address] imaging with intraabdominal abscesses noted; posterior pelvis of 9 x 4.9cm, unclear if communicating with a 3.7cm abscess in the upper pelvis which contains gas and possibly oral contrast administered prior the study. There is an upper pelvic
abscess is adjacent to a soft tissue density that is poorly defined. Reactive thickening of surrounding structures including sigmoid colon. Appendix normal.
Contained bowel perforation; Unclear if from a large vs small bowel diverticulum vs less likely small bowel malignancy (CEA 5.14, Ca19-9 pending).
S/p IR trans-rectal drainage with removal of 130 cc bloody purulent output
Micro: pending
AVSS
WBC normalized
Microcytic anemia, slight drift
Nutritional labs send with low albumin/prealbumin. Folate, thiamine, b12 and iron panel pending
Clinically mildly improved. WBC normalized. Source (small bowel/Meckel's versus colonic) remains unclear. Will need further imaging workup to better delineate in the days to come. Trial of clears for today. Abdominal x-ray to assess contrast
progression and ability to perform Gastrografin enema.
Plan:
-- Clears
-- X-ray abdomen
-- Abx: Zosyn
-- Eventual Gastrografin enema or drain study to better differentiate location of perforation
-- No emergent surgery planned today but may require later this admission pending patient course and source of perforation
Subjective Data
-
Date of Service: May 29, 2025
Abdominal discomfort feels improved, difficult to tell if he is distracted by his drain site/buttock pain. No nausea or vomiting. Passing small amounts of flatus. No BM. Afebrile.
Objective Data
-
Intake and Output
05/28/25 05/29/25 05/30/25
06:59 06:59 06:59
Intake Total 1080 / 1080 1750 / 1750
Output Total 70
Balance 1080 / 1080 1680 / 1680
Intake:
Oral fluids 240 / 240
IV fluids (Total) 980 / 980 1150 / 1150
IV piggybacks 100 / 100 350 / 350
Amount instilled into Drain (
Total)
Left Pelvis Placed in IR
Output:
Drain Output (Total)
Left Pelvis Placed in IR
Other:
How many times incontinent 1
MODERATE amount urine
Number of approximated MODERATE 2 2
amounts of urine
Vital Signs
Temp Pulse Resp BP Pulse Ox
98.6 F 66 18 143/72 97
05/29/25 07:25 05/29/25 07:25 05/29/25 07:25 05/29/25 07:25 05/29/25 07:25
Lab Results
05/29/25 06:43
05/29/25 06:43
Calcium 8.6 mg/dl (8.4-10.2) 05/29/25 06:43
Total Bilirubin 0.5 mg/dl (0.2-1.3) 05/29/25 06:43
AST 13 U/L (17-59) L 05/29/25 06:43
ALT < 10 U/L (0-50) 05/29/25 06:43
Alkaline Phosphatase 183 U/L (38-126) H 05/29/25 06:43
Total Protein 4.9 g/dl (6.3-8.2) L 05/29/25 06:43
Albumin 2.5 g/dl (3.5-5.0) L 05/29/25 06:43
Physical Exam
-
Gen: NAD
Abd: soft, NT/ND, non-peritoneal
Rectal: IR drain with thin purulent output, non-bilious more feculent
Patient has a singleton catheter: No
Patient has a central line: No
--- NOTE | 2025-05-29 11:25 | VNURNOTE ---
Addendum entered by Hodan Luna RN 05/29/25 13:14:
[facility] referral placed in [facility].
Addendum entered by Hodan Luna RN 05/29/25 13:12:
Pt now agreeable to [facility]. Reviewed with him that VN will contact him within 1-2 days after DC. [place] Text to primary nurse requesting extra NSS flushes be sent home w/ pt when cleared for DC. Updated Dr Kang.
Original Note:
[facility] liaison met with patient at bedside. Explained services: short-term, intermittent, skilled. Explained homebound criteria and that VN would assist/teach with drain care and flushing. Patient declines VN stating that he can learn drain care
and flushing here in hospital. DELTA Melendrez and surgeon Dr Kang notified. No referral placed.
--- NOTE | 2025-05-29 11:50 | W.PN.HOSP.TC ---
Addendum entered and electronically signed by Ethan Tapia MD 05/29/25 14:39:
Underweight
Original Note:
Today's Communication/Plan
-
Monitor vital signs see plan
Continue with Zosyn
Continue with fluids
Monitor sodium
Maintain drain per IR and surgery
Clears
pain control
Assessment / Plan
Assessment / Plan
General: Well Developed, Well Nourished and No Apparent Distress
HEENT: NormoCephalic, Moist mucous membranes and Atraumatic
Respiratory: Clear
Cardiac: S1/S2 and Regular Rhythm; No Murmur or Rub
GI: Soft, Non Distended, Normal Bowel Sounds and Tender (RLQ )
Musculoskeletal: No Edema
Neuro: Nonfocal/grossly intact
Multiple rim-enhancing pelvic abscesses with possible contained perforation
Sepsis (leukocytosis, tachycardia) likely 2/2 above. Blood culture not checked on admission. Per blood culture 05/28 NGTD
-Abdominal ultrasound without any notable finding
- CT abdomen pelvis shows multiple rim-enhancing pelvic abscesses measuring up to 9 cm, 4.9 cm in the right anterior pelvis, 3.7 cm in the upper pelvis, collection in the upper pelvis also contains gas and small amount of hyperattenuating material
that may represent enteric contrast possibly for contained perforation, close proximity to small bowel loops in the lower abdomen adjacent to region of ill-defined nodular enhancing soft tissue that may represent inflammatory soft tissue phlegmon or
malignant soft tissue, wall thickening of the sigmoid colon urinary bladder may be infectious or reactive
Status post IR drainage 05/28. Follow culture. Currently growing viridans strep. ID evaluation. Maintain drain per IR and surgery
- Leukocytosis
- Urinalysis unremarkable
Now started on clears, monitor
- IV fluids
-Zosyn
-Dilaudid for pain
- surgery following
Hyponatremia
Monitor
Continue IVF
Anemia
Unsure if this is acute on chronic
Check iron panel, B12, folate
History of smoking
Refusing nicotine patch
Occasional alcohol use
- No alcohol use in 2 weeks
Full code
DVT prophylaxis�heparin
Anticipated Discharge: > 48 hours
Subjective/Interval History
-
Date of Service: May 29, 2025
Feels pain is better
Objective Data
-
Labs:
Laboratory Results
05/29/25
06:43
WBC 10.3
Hgb 9.8 L
Hct 31.4 L
Plt Count 508 H D
Sodium 129 L
Potassium 4.0
Chloride 102
Carbon Dioxide 24
BUN 4 L
Creatinine 0.5 L
Glucose 101 H
Calcium 8.6
Total Bilirubin 0.5
AST 13 L
ALT < 10
Alkaline Phosphatase 183 H
Vital Signs:
Vital Signs
Temp Pulse Resp BP Pulse Ox
98.6 F 66 18 143/72 97
05/29/25 07:25 05/29/25 07:25 05/29/25 07:25 05/29/25 07:25 05/29/25 07:25
I&O
05/28/25 05/29/25 05/30/25
06:59 06:59 06:59
Intake Total 1080 / 1080 1750 / 1750
Output Total 70 / 70
Balance 1080 / 1080 1680 / 1680
--- NOTE | 2025-05-29 12:08 | CM ---
CM following re: discharge planning.
Reviewed pt's chart.
Per MD pt will need VN services for drain care. Pt is aware, expressed his agreement after talking in details regarding the importance of VN services and pt preferred [facility]. A referral to [facility] made.
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
Please fax discharge instructions to [facility] at [phone].
D/C plan: home with anticipated no needs.
CM will follow with discharge plan updates as hospitalization progresses
--- NOTE | 2025-05-29 12:09 | CON.ID ---
Consultation
-
Date/Time Consultation Requested: 05/29/25 11:52
Date/Time Consultation Performed: 05/29/25 12:09
Requesting Provider: Dr Tapia
Performing Provider: Dr Kern
Reason for Consultation: intraabdominal abscess
Chief Complaint / Past History
Chief Complaint
abdominal pain
History of Present Illness
Mr Duran is a 60 year old male without significant history beyond smoking who developed a two week history of abdominal pain - generally diffuse - no fever or chills. He has been taking tylenol with limited improvement. Appetite has been poor.
He has continued with bowel movements and flatus though no BM in the last 3-4 days prior to arrival.
Since arrival here he has been afebrile, bp stable, wbc initially 15, peaked at 18.1 and now 10.3, hgb 9.8, plt 508, L shift has na 129 today, cr 0.5, t bili 0.5, ast 13, alt 10, CEA 5, CA 19-9 pending, CT a/p complex multiple rim enhancing pelvic
abscesses, possible contained perforation - unclear if in proximity to the small bowel and if mass or phlegmon, appendix is within normal limits, wall thickening from sigmoid and urinary bladder thought to be reactive. A drain was placed by IR
yielding 130 ccs of bloody/purulent fluid and a wound culture has grown VGS, patient is on zosyn. 05/29 Xray shows contrast from two days previously now in the large bowel.
Past History
Additional Past Medical History:
none, limited contact with medical providers
Past Surgical History: None
Allergy History:
No Known Allergies Allergy (Unverified 05/27/25 09:23)
Medications Reviewed: Yes
Social History
Tobacco: Smoker (1/2 ppd)
Alcohol: Occasional
Drug: None
Family History
Family History: Not Pertinent
Review of Systems
Review of Systems
A 12 point ROS was completed and negative except as noted: Yes
Constitutional: Reports No Symptoms
EENT: Reports No Symptoms
Respiratory: Reports No Symptoms
Cardiac: Reports No Symptoms
Abdomen/GI: Reports See HPI
: Reports No Symptoms
Musculoskeletal: Reports No Symptoms
Skin: Reports No Symptoms
Neurological: Reports No Symptoms
Endocrine: Reports No Symptoms
Hematologic/Lymphatic: Reports No Symptoms
Psych: Reports No Symptoms
Vital Signs
Temp Pulse Resp BP Pulse Ox
98.6 F 66 18 143/72 97
05/29/25 07:25 05/29/25 07:25 05/29/25 07:25 05/29/25 07:25 05/29/25 07:25
Physical Exam
Physical Exam
Constitutional: No Acute Distress
Cardiovascular: Regular Rate and S1/S2; Negative Murmur or Rub
Pulmonary: Clear and Symmetric; Negative Wheezes, Rales or Rhonchi
Gastrointestinal: Soft, Non Tender, Non Distended and Normal Bowel Sounds
Skin: Warm and Dry; Negative Rash or Jaundice
Lines: Other (drain purulent/blood tinged)
Lab / Diagnostic Study Results
05/29/25 06:43
05/29/25 06:43
Abs Immat Gran (auto) 0.1 10^3/uL (0-0.05) H 05/29/25 06:43
Absolute Neuts (auto) 7.8 10^3/uL (1.4-6.5) H 05/29/25 06:43
Absolute Lymphs (auto) 1.4 10^3/uL (1.2-3.4) 05/29/25 06:43
Absolute Monos (auto) 0.9 10^3/uL (0.1-0.6) H 05/29/25 06:43
Absolute Basos (auto) 0.0 10^3/uL (0-0.2) 05/29/25 06:43
Immature Gran % 0.8 % (0-0.5) H 05/29/25 06:43
Neutrophils % 75.7 % (42.2-75.2) H 05/29/25 06:43
Lymphocytes % 13.8 % (20.5-51.1) L 05/29/25 06:43
Monocytes % 9.0 % (1.7-9.3) 05/29/25 06:43
Eosinophils % 0.4 % (0-6) 05/29/25 06:43
Basophils % 0.3 % (0-2) 05/29/25 06:43
PT 13.8 Sec (11.4-14.6) 05/28/25 10:32
INR 1.03 05/28/25 10:32
Ur Squamous Epith Cells 3-5 /LPF (Few) 05/27/25 11:28
Microbiology Results
Micro:
05/28/25 15:40 Wound Culture - Preliminary
Abdomen Viridans Streptococcus Group
Gram Stain - Preliminary
05/28/25 14:15 Blood Culture - Pending
Blood/Venous
05/28/25 13:43 Blood Culture - Pending
Blood/Venous
Assessment / Plan
Intraabdominal abscesses
- unclear cause - workup per surgery
- s/p IR guided drain placement - output remains purulent/blood tinged
- culture with VGS
- agree with zosyn
[2025-05-29 15:12] VITALS: BP 153/90
[2025-05-29 15:58] LABS: Iron 45 ug/dl (49-181)
[2025-05-29 16:08] LABS: Total Iron Binding Capacity 151 ug/dl (261-462)
[2025-05-29 16:24] LABS: Transferrin 131 mg/dL (200-360)
[2025-05-29 16:33] LABS: CA 19-9 38 U/mL (<=35)
[2025-05-29 17:32] LABS: Folate 10.9 ng/ml (2.76-20)
[2025-05-29] MEDS: DILAUDID 0.25 MG IV (19:32)
[2025-05-29 21:29] LABS: Ferritin 389.0 ng/ml (17.9-464.0)
[2025-05-29 23:00] VITALS: BP 131/68
[2025-05-29 23:47] LABS: Vitamin B12 804 pg/ml (239-931)
--- NOTE | 2025-05-30 02:24 | DOWNTIME ---
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 Downtime documentation of patient's care, including medication administrations, has been reconciled in the electronic record per guidelines. Refer to the
patient's paper chart under the miscellaneous tab to see printed paper medication records and downtime forms.
[2025-05-30] MEDS: ZOSYN 50 IV ×4 (02:31→19:26)
[2025-05-30] MEDS: DILAUDID 0.5 MG IV ×4 (03:50→20:49)
[2025-05-30 06:25] LABS: Hematocrit 31.4 % (39.0-52.0); Hemoglobin 9.9 g/dL (13.0-18.0); Mean Corp Hgb Conc. 31.5 g/dL (33.0-37.0); Mean Corpuscular Volume 93.2 fL (80.0-94.0); Nucleated Red Blood Cells % 0 % (-); Platelet Count 537 10^3/uL (130-400); Red Cell Dist. Width 14.8 % (11.5-14.5)
[2025-05-30 06:46] LABS: ALT (SGPT) 12 U/L (0-50); AST (SGOT) 17 U/L (17-59); Albumin 2.5 g/dl (3.5-5.0); Alkaline Phosphatase 151 U/L (38-126); Blood Urea Nitrogen < 2 mg/dl (9-20); Calcium 8.8 mg/dl (8.4-10.2); Carbon Dioxide 29 mmol/L (22-30); Chloride 105 mmol/L (98-107); Estimated Creatinine Clearance 102 ml/min; Glucose 119 mg/dl (70-99); Potassium 3.7 mmol/L (3.5-5.1); Sodium 132 mmol/L (135-145); Total Protein 5.0 g/dl (6.3-8.2); eGFR > 60.00
[2025-05-30 07:38] VITALS: BP 136/76
[2025-05-30] MEDS: HEPARIN 5000 UNITS SC ×2 (08:05→19:27)
--- NOTE | 2025-05-30 10:49 | W.PN.GS2 ---
Addendum entered and electronically signed by Dimitry Ward MD 05/30/25 12:49:
KUB reviewed: PO contrast reaches the distal colon and area of the drain; will proceed with repeat CT today with IV contrast only
Original Note:
Today's Communication / Plan
-
F/U KUB, GGE when po contrast cleared, cont abx, cont cld
Assessment / Plan
-
Patient is a 60 yo M p/w abdominal pain for the last [address] imaging with intraabdominal abscesses noted; posterior pelvis of 9 x 4.9cm, unclear if communicating with a 3.7cm abscess in the upper pelvis which contains gas and possibly oral contrast administered prior the study. There is an upper pelvic
abscess is adjacent to a soft tissue density that is poorly defined. Reactive thickening of surrounding structures including sigmoid colon. Appendix normal.
Contained bowel perforation; Unclear if from a large vs small bowel diverticulum vs less likely small bowel malignancy (CEA 5.14, Ca19-9 pending).
S/p IR trans-rectal drainage with removal of 130 cc bloody purulent output
Micro: Strep viridans, GNR
AVSS
WBC normalized
Microcytic anemia, slight drift
Hypoalbuminemia
Clinically improved. WBC normalized. Source (small bowel/Meckel's versus colonic) remains unclear. Will need further imaging workup to better delineate in the days to come. Remain on clears for today. Abdominal x-ray to assess contrast
progression and ability to perform Gastrografin enema.
Plan:
-- Clears
-- X-ray abdomen
-- Abx: Zosyn
-- Eventual Gastrografin enema or drain study to better differentiate location of perforation
-- No emergent surgery planned today but may require later this admission pending patient course and source of perforation
Subjective Data
-
Date of Service: May 30, 2025
AFVSS, no complaints, feeling 'better,' deniea n/v, denies abd pain, c/o pain around drain site
Objective Data
-
Intake and Output
05/29/25 05/30/25 05/31/25
06:59 06:59 06:59
Intake Total 1750 / 1750 2029 / 2029
Output Total 70 / 70 30 / 30
Balance 1680 / 1680 1999 / 1999
Intake:
Oral fluids 240 / 240 840 / 840
IV fluids (Total) 1150 / 1150 1080 / 1080
IV piggybacks 350 / 350 100 / 100
Amount instilled into Drain (
Total)
Left Pelvis Placed in IR
Output:
Drain Output (Total) 70 / 70 30 / 30
Left Pelvis Placed in IR 70 / 70 30 / 30
Other:
How many times incontinent 1
MODERATE amount urine
Number of approximated MODERATE 2 2
amounts of urine
Vital Signs
Temp Pulse Resp BP Pulse Ox
98.2 F 64 16 136/76 98
05/30/25 07:38 05/30/25 07:38 05/30/25 07:38 05/30/25 07:38 05/30/25 07:38
Lab Results
05/30/25 06:00
05/30/25 06:00
Calcium 8.8 mg/dl (8.4-10.2) 05/30/25 06:00
Total Bilirubin 0.4 mg/dl (0.2-1.3) 05/30/25 06:00
AST 17 U/L (17-59) 05/30/25 06:00
ALT 12 U/L (0-50) 05/30/25 06:00
Alkaline Phosphatase 151 U/L (38-126) H 05/30/25 06:00
Total Protein 5.0 g/dl (6.3-8.2) L 05/30/25 06:00
Albumin 2.5 g/dl (3.5-5.0) L 05/30/25 06:00
Physical Exam
-
Gen: NAD
Abd: soft, nt, drain seropurulent with blood tinge
Patient has a singleton catheter: No
Patient has a central line: No
--- NOTE | 2025-05-30 10:52 | PTCARENOTE ---
Verbal consent obtained for HIV testing. Care ongoing.
--- NOTE | 2025-05-30 11:18 | W.PN.ID1 ---
Date of Service
Date of Service: May 30, 2025
Today's Communication
continue zosyn
Assessment / Plan
Intraabdominal abscesses
- unclear cause - workup per surgery
- s/p IR guided drain placement - output remains purulent/blood tinged
- culture with VGS and GNR
- continue with zosyn
Chief Complaint
-: Other (intraabdominal abscess)
Subjective / Review of Systems
afebrile
bp stable
tolerating current therapies
Vital Signs / Physical Exam
Vital Signs
Vital Signs
Temp Pulse Resp BP Pulse Ox
98.2 F 64 16 136/76 98
05/30/25 07:38 05/30/25 07:38 05/30/25 07:38 05/30/25 07:38 05/30/25 07:38
Physical Exam
Constitutional: No Acute Distress
Cardiovascular: Regular Rate and S1/S2; Negative Murmur or Rub
Pulmonary: Clear and Symmetric; Negative Wheezes or Rales
Gastrointestinal: Soft, Non Tender, Non Distended and Normal Bowel Sounds
Skin: Warm and Dry; Negative Rash or Jaundice
Objective Data
Lab Data
Lab Results
05/30/25 06:00
05/30/25 06:00
PT 13.8 Sec (11.4-14.6) 05/28/25 10:32
INR 1.03 05/28/25 10:32
Estimated Creat Clear 102 ml/min 05/30/25 06:00
Total Bilirubin 0.4 mg/dl (0.2-1.3) 05/30/25 06:00
AST 17 U/L (17-59) 05/30/25 06:00
ALT 12 U/L (0-50) 05/30/25 06:00
Alkaline Phosphatase 151 U/L (38-126) H 05/30/25 06:00
Most recent labs reviewed.
Micro Results:
05/28/25 15:40 Wound Culture - Preliminary
Abdomen Gram negative bacilli
Viridans Streptococcus Group
Gram Stain - Preliminary
05/28/25 14:15 Blood Culture - Preliminary
Blood/Venous No Growth in 24 hours- Final report to follow
05/28/25 13:43 Blood Culture - Preliminary
Blood/Venous No Growth in 24 hours- Final report to follow
[2025-05-30 11:34] LABS: Vitamin B1, Whole Blood 137 nmol/L (70-180)
[2025-05-30 12:04] LABS: Hepatitis B Surface Antigen Negative (Negative)
[2025-05-30 12:21] LABS: Hepatitis C Antibody Negative (Negative)
[2025-05-30] MEDS: D5LR 1000 IV (12:23)
--- NOTE | 2025-05-30 13:10 | W.PN.HOSP.TC ---
Today's Communication/Plan
-
Monitor vital signs see plan
Continue with Zosyn
Repeat CT per surgery today
Monitor drain
Assessment / Plan
Assessment / Plan
General: Well Developed, Well Nourished and No Apparent Distress
HEENT: NormoCephalic, Moist mucous membranes and Atraumatic
Respiratory: Clear
Cardiac: S1/S2 and Regular Rhythm; No Murmur or Rub
GI: Soft, Non Distended, Normal Bowel Sounds, +drain
Musculoskeletal: No Edema
Neuro: Nonfocal/grossly intact
Multiple rim-enhancing pelvic abscesses with possible contained perforation
Sepsis (leukocytosis, tachycardia) likely 2/2 above. Blood culture not checked on admission. Per blood culture 05/28 NGTD
-Abdominal ultrasound without any notable finding
- CT abdomen pelvis shows multiple rim-enhancing pelvic abscesses measuring up to 9 cm, 4.9 cm in the right anterior pelvis, 3.7 cm in the upper pelvis, collection in the upper pelvis also contains gas and small amount of hyperattenuating material
that may represent enteric contrast possibly for contained perforation, close proximity to small bowel loops in the lower abdomen adjacent to region of ill-defined nodular enhancing soft tissue that may represent inflammatory soft tissue phlegmon or
malignant soft tissue, wall thickening of the sigmoid colon urinary bladder may be infectious or reactive
Status post IR drainage 05/28. Follow culture. Currently growing viridans strep. ID following. Maintain drain per IR and surgery
- Leukocytosis
- Urinalysis unremarkable
Now started on clears, monitor
-cw Zosyn
-Dilaudid for pain
- surgery following, repeat CT with IV contrast today
Needlestick injury per RN
Patient agreeable for HIV and hepatitis per protocol. Pending
Hyponatremia
Monitor
Anemia
Good iron stores, B12 and folate. Appears likely from chronic disease
History of smoking
Refusing nicotine patch
Occasional alcohol use
- No alcohol use in 2 weeks
Underweight
Full code
DVT prophylaxis�heparin
Anticipated Discharge: > 48 hours
Subjective/Interval History
-
Date of Service: May 30, 2025
Denies nausea
Objective Data
-
Labs:
Laboratory Results
05/30/25
06:00
WBC 9.8
Hgb 9.9 L
Hct 31.4 L
Plt Count 537 H
Sodium 132 L
Potassium 3.7
Chloride 105
Carbon Dioxide 29
BUN < 2 L
Creatinine 0.6 L
Glucose 119 H
Calcium 8.8
Total Bilirubin 0.4
AST 17
ALT 12
Alkaline Phosphatase 151 H
Vital Signs:
Vital Signs
Temp Pulse Resp BP Pulse Ox
98.2 F 64 16 136/76 98
05/30/25 07:38 05/30/25 07:38 05/30/25 07:38 05/30/25 07:38 05/30/25 07:38
I&O
05/29/25 05/30/25 05/31/25
06:59 06:59 06:59
Intake Total 1750 / 1750 2029 / 2029
Output Total 70 / 70 30 / 30
Balance 1680 / 1680 1999
--- NOTE | 2025-05-30 13:25 | CM ---
CM following re: discharge planning.
Reviewed pt's chart.
Per MD, Repeat CT per surgery today. Monitor drain. Continue antibiotics, continue supportive care.
[facility] liaison following.
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
Please fax discharge instructions to [facility] at [phone].
D/C plan: home with [facility] and family support.
CM will follow with discharge plan updates as hospitalization progresses
[2025-05-30 15:20] VITALS: BP 127/75
[2025-05-30] MEDS: D5LR IV (20:42)
[2025-05-30 23:00] VITALS: BP 135/76
[2025-05-31] MEDS: DILAUDID 0.5 MG IV ×4 (01:42→19:45)
[2025-05-31] MEDS: ZOSYN 50 IV ×4 (01:42→19:40)
[2025-05-31 06:16] LABS: Hematocrit 29.7 % (39.0-52.0); Hemoglobin 9.6 g/dL (13.0-18.0); Mean Corp Hgb Conc. 32.3 g/dL (33.0-37.0); Mean Corpuscular Volume 91.7 fL (80.0-94.0); Nucleated Red Blood Cells % 0 % (-); Platelet Count 567 10^3/uL (130-400); Red Cell Dist. Width 14.8 % (11.5-14.5)
[2025-05-31 06:38] LABS: ALT (SGPT) 12 U/L (0-50); AST (SGOT) 14 U/L (17-59); Albumin 2.5 g/dl (3.5-5.0); Alkaline Phosphatase 128 U/L (38-126); Blood Urea Nitrogen < 2 mg/dl (9-20); Calcium 8.6 mg/dl (8.4-10.2); Carbon Dioxide 28 mmol/L (22-30); Chloride 103 mmol/L (98-107); Estimated Creatinine Clearance 102 ml/min; Glucose 95 mg/dl (70-99); Potassium 3.7 mmol/L (3.5-5.1); Sodium 132 mmol/L (135-145); Total Protein 4.9 g/dl (6.3-8.2); eGFR > 60.00
[2025-05-31 07:05] VITALS: BP 130/74
[2025-05-31] MEDS: HEPARIN 5000 UNITS SC ×2 (08:50→19:40)
--- NOTE | 2025-05-31 09:32 | W.PN.GS2 ---
Addendum entered and electronically signed by Stewart Min MD 05/31/25 16:25:
Patient seen and examined this a.m. with surgical ANALYSIS EVALUATOR. Agree with documented progress note.
Overall patient reports continued improvement. Denies abdominal pain/discomfort. Only residual pain at this point is at his IR drain catheter exit site in the gluteal region. No nausea. States he is hungry. Multiple bowel movements after
contrast CT imaging yesterday
AFVSS
WBC down to 11.8
NAD AAO x 3
ABD: Soft, nondistended, no significant tenderness. No rebound rigidity or guarding.
IR drain to bulb; scant bloody purulent fluid
CT imaging 05/30 reviewed. The pelvic abscess nearly completely resolved. Continued residual sigmoid inflammation and wall thickening but contrast passes through the region without extravasation. Prior 2 small abscesses stable/improving. There
does not appear to be a 6.5 cm abscess as described it is closer to 3.5 cm. Confirmed with interventional radiology that there does not appear to be any residual collections amenable to IR drainage.
Assessment/plan: 60-year-old male with sigmoid diverticulitis complicated by intra-abdominal abscesses
Appear to have adequate source control with transgluteal pelvic drain. Smaller intra-abdominal collections just above the pelvic brim/right lower quadrant which appear stable/slightly improved.
Continue Zosyn
Full liquid diet today and probable dietary advancement if continued clinical improvement.
Maintain IR drain -eventual tube study to confirm there is no residual communication with the colon prior to removal
Original Note:
Today's Communication / Plan
-
c/w drain, abx
fld
Assessment / Plan
-
Patient is a 60 yo M p/w abdominal pain for the last [address] imaging with intraabdominal abscesses noted; posterior pelvis of 9 x 4.9cm, unclear if communicating with a 3.7cm abscess in the upper pelvis which contains gas and possibly oral contrast administered prior the study. There is an upper pelvic
abscess is adjacent to a soft tissue density that is poorly defined. Reactive thickening of surrounding structures including sigmoid colon. Appendix normal.
PPD #3 IR trans-rectal drainage with removal of 130 cc bloody purulent output initially
Micro: Strep viridans, GNR
Repeat Ct on 05/30 with abscesses noted to be decreased in size. D/W IR and personally reviewed film: the '6.5 cm' anterior pelvic abscess is measured at 3.5 cm. Not in a location amenable to IR drainage. Given interval improvement, the perforation
more clearly from sigmoid colon diverticulitis not small bowel pathology.
AVSS
Mild leukocytosis, increased from previous
Microcytic anemia, slight drift
Hypoalbuminemia, low BMI
Hyponatremia improving
Abdominal pain resolved. Passing gas/stools. Clinically improving overall.
Plan:
-- Ok for FLD
-- CW IR drain
-- Abx: Zosyn, ID following. Await final cx.
-- Thus far improving without emergent surgery, will continue to hold off on operative intervention. Discussed recommendation for interval surgery in the coming months with colonoscopy preop with patient.
Subjective Data
-
Date of Service: May 31, 2025
Pt seen and examined at bedside with Dr. Min. Denies n/v. Passing gas. Formed Bm then 3 loose ones. Good appetite. Eager for discharge. No abdominal pain, but discomfort at site of drain.
Objective Data
-
Intake and Output
05/30/25 05/31/25 06/01/25
06:59 06:59 06:59
Intake Total 2029 3320 / 3320
Output Total
Balance 1999 / 1999 3300 / 3300
Intake:
Oral fluids 840 / 840 2160 / 2160
IV fluids (Total) 1080 / 1080 950 / 950
IV piggybacks 100 / 100 200 / 200
Amount instilled into Drain (
Total)
Left Pelvis Placed in IR
Output:
Drain Output (Total)
Left Pelvis Placed in IR
Other:
Number of approximated MODERATE 2 2
amounts of urine
Vital Signs
Temp Pulse Resp BP Pulse Ox
98.1 F 78 18 130/74 97
05/31/25 07:05 05/31/25 07:05 05/31/25 07:05 05/31/25 07:05 05/31/25 07:05
Lab Results
05/31/25 05:30
05/31/25 05:30
Calcium 8.6 mg/dl (8.4-10.2) 05/31/25 05:30
Total Bilirubin 0.4 mg/dl (0.2-1.3) 05/31/25 05:30
AST 14 U/L (17-59) L 05/31/25 05:30
ALT 12 U/L (0-50) 05/31/25 05:30
Alkaline Phosphatase 128 U/L (38-126) H 05/31/25 05:30
Total Protein 4.9 g/dl (6.3-8.2) L 05/31/25 05:30
Albumin 2.5 g/dl (3.5-5.0) L 05/31/25 05:30
Physical Exam
-
Gen: NAD
Abd: soft, nt, drain seropurulent with blood tinge
Patient has a singleton catheter: No
Patient has a central line: No
--- NOTE | 2025-05-31 12:10 | W.PN.HOSP.TC ---
Today's Communication/Plan
-
Monitor vital signs see plan
Continue with abx
fulls
pain control
follow cx
Assessment / Plan
Assessment / Plan
General: Well Developed, Well Nourished and No Apparent Distress
HEENT: NormoCephalic, Moist mucous membranes and Atraumatic
Respiratory: Clear
Cardiac: S1/S2 and Regular Rhythm; No Murmur or Rub
GI: Soft, Non Distended, Normal Bowel Sounds, +drain
Musculoskeletal: No Edema
Neuro: Nonfocal/grossly intact
Multiple rim-enhancing pelvic abscesses with possible contained perforation
Sepsis (leukocytosis, tachycardia) likely 2/2 above. Blood culture not checked on admission. Per blood culture 05/28 NGTD
-Abdominal ultrasound without any notable finding
- CT abdomen pelvis shows multiple rim-enhancing pelvic abscesses measuring up to 9 cm, 4.9 cm in the right anterior pelvis, 3.7 cm in the upper pelvis, collection in the upper pelvis also contains gas and small amount of hyperattenuating material
that may represent enteric contrast possibly for contained perforation, close proximity to small bowel loops in the lower abdomen adjacent to region of ill-defined nodular enhancing soft tissue that may represent inflammatory soft tissue phlegmon or
malignant soft tissue, wall thickening of the sigmoid colon urinary bladder may be infectious or reactive
Status post IR drainage 05/28. Follow culture. Currently growing viridans strep. ID following. Maintain drain per IR and surgery
- Leukocytosis
- Urinalysis unremarkable
Now started on clears, monitor
-cw Zosyn
-Dilaudid for pain
- surgery following, repeat CT 05/30 with abscesses noted to be decreasing in size. Per surgery, hold off on operative intervention. Will need colonoscopy in near future
Needlestick injury per RN
Patient agreeable for HIV and hepatitis per protocol. results negative
Hyponatremia
Monitor
Anemia
Good iron stores, B12 and folate. Appears likely from chronic disease
History of smoking
Refusing nicotine patch
Occasional alcohol use
- No alcohol use in 2 weeks
Underweight
Full code
DVT prophylaxis�heparin
Anticipated Discharge: 24 - 48 hours
Subjective/Interval History
-
Date of Service: May 31, 2025
Feeling better
Objective Data
-
Labs:
Laboratory Results
05/31/25
05:30
WBC 11.8 H
Hgb 9.6 L
Hct 29.7 L
Plt Count 567 H
Sodium 132 L
Potassium 3.7
Chloride 103
Carbon Dioxide 28
BUN < 2 L
Creatinine 0.6 L
Glucose 95
Calcium 8.6
Total Bilirubin 0.4
AST 14 L
ALT 12
Alkaline Phosphatase 128 H
Vital Signs:
Vital Signs
Temp Pulse Resp BP Pulse Ox
98.1 F 78 18 130/74 97
05/31/25 07:05 05/31/25 07:05 05/31/25 07:05 05/31/25 07:05 05/31/25 07:05
I&O
05/30/25 05/31/25 06/01/25
06:59 06:59 06:59
Intake Total 2029 3320 / 3320
Output Total
Balance 1999 3300 / 3300
--- NOTE | 2025-05-31 12:37 | CM ---
Chart reviewed; Anticipated Discharge: 24 - 48 hours
Case Management will continue to monitor and support discharge plan as needed
[2025-05-31 15:15] VITALS: BP 141/74
--- NOTE | 2025-05-31 15:32 | W.PN.ID1 ---
Date of Service
Date of Service: May 31, 2025
Today's Communication
continue zosyn
Assessment / Plan
Intraabdominal abscesses
- s/p IR guided drain placement - output remains purulent/blood tinged; abscess sizes decreased overall
- culture with VGS and Morganella
- continue with zosyn today
Chief Complaint
-: Other (intraabdominal abscess)
Subjective / Review of Systems
afebrile
bp stable
Vital Signs / Physical Exam
Vital Signs
Vital Signs
Temp Pulse Resp BP Pulse Ox
98.2 F 70 18 141/74 98
05/31/25 15:15 05/31/25 15:15 05/31/25 15:15 05/31/25 15:15 05/31/25 15:15
Physical Exam
Constitutional: No Acute Distress
Cardiovascular: Regular Rate and S1/S2; Negative Murmur or Rub
Pulmonary: Clear and Symmetric; Negative Wheezes or Rales
Gastrointestinal: Soft, Non Tender, Non Distended and Normal Bowel Sounds
Skin: Warm and Dry; Negative Rash or Jaundice
Objective Data
Lab Data
Lab Results
05/31/25 05:30
05/31/25 05:30
PT 13.8 Sec (11.4-14.6) 05/28/25 10:32
INR 1.03 05/28/25 10:32
Estimated Creat Clear 102 ml/min 05/31/25 05:30
Total Bilirubin 0.4 mg/dl (0.2-1.3) 05/31/25 05:30
AST 14 U/L (17-59) L 05/31/25 05:30
ALT 12 U/L (0-50) 05/31/25 05:30
Alkaline Phosphatase 128 U/L (38-126) H 05/31/25 05:30
Most recent labs reviewed.
Micro Results:
05/28/25 14:15 Blood Culture - Preliminary
Blood/Venous No Growth in 72 hours- Final report to follow
05/28/25 13:43 Blood Culture - Preliminary
Blood/Venous No Growth in 72 hours- Final report to follow
05/28/25 15:40 Wound Culture - Final
Abdomen Morganella morganii
Viridans Streptococcus Group
Gram Stain - Final
[2025-05-31 23:00] VITALS: BP 126/68
[2025-06-01] MEDS: ZOSYN 50 IV ×2 (01:05→08:49)
[2025-06-01] MEDS: DILAUDID 0.5 MG IV (01:25)
[2025-06-01 07:40] LABS: Hematocrit 31.8 % (39.0-52.0); Hemoglobin 10.2 g/dL (13.0-18.0); Mean Corp Hgb Conc. 32.1 g/dL (33.0-37.0); Mean Corpuscular Volume 92.4 fL (80.0-94.0); Nucleated Red Blood Cells % 0 % (-); Platelet Count 598 10^3/uL (130-400); Red Cell Dist. Width 15.1 % (11.5-14.5)
[2025-06-01 08:00] VITALS: BP 135/81
[2025-06-01 08:16] LABS: ALT (SGPT) 11 U/L (0-50); AST (SGOT) 14 U/L (17-59); Albumin 2.6 g/dl (3.5-5.0); Alkaline Phosphatase 119 U/L (38-126); Blood Urea Nitrogen < 2 mg/dl (9-20); Calcium 8.7 mg/dl (8.4-10.2); Carbon Dioxide 32 mmol/L (22-30); Chloride 104 mmol/L (98-107); Estimated Creatinine Clearance 87 ml/min; Glucose 92 mg/dl (70-99); Potassium 4.3 mmol/L (3.5-5.1); Sodium 136 mmol/L (135-145); Total Protein 4.9 g/dl (6.3-8.2); eGFR > 60.00
[2025-06-01] MEDS: ROXICODONE 5 MG PO ×3 (08:48→21:30)
[2025-06-01] MEDS: HEPARIN 5000 UNITS SC ×2 (08:49→19:29)
--- NOTE | 2025-06-01 09:43 | W.PN.GS2 ---
Today's Communication / Plan
-
advance diet
continue abx
dispo planning
Assessment / Plan
-
Patient is a 60 yo M p/w abdominal pain for the last [address] imaging with intraabdominal abscesses noted; posterior pelvis of 9 x 4.9cm, unclear if communicating with a 3.7cm abscess in the upper pelvis which contains gas and possibly oral contrast administered prior the study. There is an upper pelvic
abscess is adjacent to a soft tissue density that is poorly defined. Reactive thickening of surrounding structures including sigmoid colon. Appendix normal.
PPD #4 IR trans-gluteal drainage with removal of 130 cc bloody purulent output initially
Micro: Strep viridans, Morganella
Repeat Ct on 05/30: The pelvic abscess nearly completely resolved. Continued residual sigmoid inflammation and wall thickening but contrast passes through the region without extravasation. Prior 2 small abscesses stable/improving. There does not
appear to be a 6.5 cm abscess as described it is closer to 3.5 cm. Confirmed with interventional radiology that there does not appear to be any residual collections amenable to IR drainage.
AVSS
Leukocytosis resolved
Microcytic anemia, stable
Hypoalbuminemia, low BMI
Hyponatremia resolved
Abdominal pain resolved. Passing gas/stools. Clinically improving overall.
Plan:
-- Ok for LRD
-- CW IR drain upon discharge. CM following for [facility] arrangements
-- Abx: Zosyn, ID following
-- Final dispo as per primary team once ABX plan in place for discharge
Thus far improving without emergent surgery. No plans for surgery this admission. Discussed recommendation for interval surgery in the coming months with colonoscopy preop with patient, will plan follow up with Dr. Faustin
Subjective Data
-
Date of Service: June 01, 2025
Pt seen and examined at bedside with Dr. Haskins. Denies n/v. Tolerating liquid diet and would like to try more foods. Denies pain. Some discomfort at drain site intermittently.
Objective Data
-
Intake and Output
05/31/25 06/01/25 06/02/25
06:59 06:59 06:59
Intake Total 3320 / 3320 1450 / 1450 60 / 60
Output Total
Balance 3300 / 3300 1435 / 1435 60 / 60
Intake:
Oral fluids 2160 / 2160 1340 / 1340
IV fluids (Total) 950 / 950
IV piggybacks 200 / 200 100 / 100 50 / 50
Amount instilled into Drain (
Total)
Left Pelvis Placed in IR
Output:
Drain Output (Total)
Left Pelvis Placed in IR
Other:
Number of approximated MODERATE 2 3
amounts of urine
Vital Signs
Temp Pulse Resp BP Pulse Ox
99.1 F 63 16 135/81 95
06/01/25 08:00 06/01/25 08:00 06/01/25 08:00 06/01/25 08:00 06/01/25 08:00
Lab Results
06/01/25 06:26
06/01/25 06:26
Calcium 8.7 mg/dl (8.4-10.2) 06/01/25 06:26
Total Bilirubin 0.3 mg/dl (0.2-1.3) 06/01/25 06:26
AST 14 U/L (17-59) L 06/01/25 06:26
ALT 11 U/L (0-50) 06/01/25 06:26
Alkaline Phosphatase 119 U/L (38-126) 06/01/25 06:26
Total Protein 4.9 g/dl (6.3-8.2) L 06/01/25 06:26
Albumin 2.6 g/dl (3.5-5.0) L 06/01/25 06:26
Physical Exam
-
Gen: NAD
Abd: soft, nt, drain seropurulent with blood tinge
Patient has a singleton catheter: No
Patient has a central line: No
--- NOTE | 2025-06-01 10:36 | W.PN.ID1 ---
Date of Service
Date of Service: June 01, 2025
Today's Communication
- start ciprofloxacin, metronidazole plan another 4 week course then reassess in ID clinic with CT, cbc, cmp, esr, crp just prior to that visit - I have ordered these studies through [facility]
Assessment / Plan
Intraabdominal abscesses
- s/p IR guided drain placement - abscess sizes decreased overall
- culture with VGS and Morganella
- start ciprofloxacin, metronidazole plan another 4 week course then reassess in ID clinic with CT, cbc, cmp, esr, crp just prior to that visit - I have ordered these studies through [facility]
- stop zosyn
- follow up in clinic in 4 weeks
Chief Complaint
-: Other (intraabdominal abscess)
Subjective / Review of Systems
afebrile
bp stable
tolerating current therapies
Vital Signs / Physical Exam
Vital Signs
Vital Signs
Temp Pulse Resp BP Pulse Ox
99.1 F 63 16 135/81 95
06/01/25 08:00 06/01/25 08:00 06/01/25 08:00 06/01/25 08:00 06/01/25 08:00
Physical Exam
Constitutional: No Acute Distress
Cardiovascular: Regular Rate and S1/S2; Negative Murmur or Rub
Pulmonary: Clear and Symmetric; Negative Wheezes or Rales
Gastrointestinal: Soft, Non Tender, Non Distended and Normal Bowel Sounds
Skin: Warm and Dry; Negative Rash or Jaundice
Wound: Other (drain in place)
Objective Data
Lab Data
Lab Results
06/01/25 06:26
06/01/25 06:26
PT 13.8 Sec (11.4-14.6) 05/28/25 10:32
INR 1.03 05/28/25 10:32
Estimated Creat Clear 87 ml/min 06/01/25 06:26
Total Bilirubin 0.3 mg/dl (0.2-1.3) 06/01/25 06:26
AST 14 U/L (17-59) L 06/01/25 06:26
ALT 11 U/L (0-50) 06/01/25 06:26
Alkaline Phosphatase 119 U/L (38-126) 06/01/25 06:26
Most recent labs reviewed.
Micro Results:
05/28/25 14:15 Blood Culture - Preliminary
Blood/Venous No Growth in 72 hours- Final report to follow
05/28/25 13:43 Blood Culture - Preliminary
Blood/Venous No Growth in 72 hours- Final report to follow
05/28/25 15:40 Wound Culture - Final
Abdomen Morganella morganii
Viridans Streptococcus Group
Gram Stain - Final
--- NOTE | 2025-06-01 11:28 | W.PN.HOSP.TC ---
Today's Communication/Plan
-
Monitor vital signs and see plan
Advance diet per surgery
Continue antibiotic
Pain control
Assessment / Plan
Assessment / Plan
General: Well Developed, Well Nourished and No Apparent Distress
HEENT: NormoCephalic, Moist mucous membranes and Atraumatic
Respiratory: Clear
Cardiac: S1/S2 and Regular Rhythm; No Murmur or Rub
GI: Soft, Non Distended, Normal Bowel Sounds, +drain
Musculoskeletal: No Edema
Neuro: Nonfocal/grossly intact
Multiple rim-enhancing pelvic abscesses with possible contained perforation
Sepsis (leukocytosis, tachycardia) likely 2/2 above. Blood culture not checked on admission. Per blood culture 05/28 NGTD
-Abdominal ultrasound without any notable finding
- CT abdomen pelvis shows multiple rim-enhancing pelvic abscesses measuring up to 9 cm, 4.9 cm in the right anterior pelvis, 3.7 cm in the upper pelvis, collection in the upper pelvis also contains gas and small amount of hyperattenuating material
that may represent enteric contrast possibly for contained perforation, close proximity to small bowel loops in the lower abdomen adjacent to region of ill-defined nodular enhancing soft tissue that may represent inflammatory soft tissue phlegmon or
malignant soft tissue, wall thickening of the sigmoid colon urinary bladder may be infectious or reactive
Status post IR drainage 05/28. Follow culture. Currently growing viridans strep. ID following. Maintain drain per IR and surgery
- Leukocytosis
- Urinalysis unremarkable
Now started on clears, monitor
-on Zosyn
-Dilaudid for pain
- surgery following, repeat CT 05/30 with abscesses noted to be decreasing in size. Per surgery, hold off on operative intervention. Will need colonoscopy in near future
Needlestick injury per RN
Patient agreeable for HIV and hepatitis per protocol. results negative
Hyponatremia
Monitor
Anemia
Good iron stores, B12 and folate. Appears likely from chronic disease
History of smoking
Refusing nicotine patch
Occasional alcohol use
- No alcohol use in 2 weeks
Underweight
Full code
DVT prophylaxis�heparin
Anticipated Discharge: Within 24 hours
Subjective/Interval History
-
Date of Service: June 01, 2025
has pain
Objective Data
-
Labs:
Laboratory Results
06/01/25
06:26
WBC 9.3
Hgb 10.2 L
Hct 31.8 L
Plt Count 598 H
Sodium 136
Potassium 4.3
Chloride 104
Carbon Dioxide 32 H
BUN < 2 L
Creatinine 0.7
Glucose 92
Calcium 8.7
Total Bilirubin 0.3
AST 14 L
ALT 11
Alkaline Phosphatase 119
Vital Signs:
Vital Signs
Temp Pulse Resp BP Pulse Ox
99.1 F 63 16 135/81 95
06/01/25 08:00 06/01/25 08:00 06/01/25 08:00 06/01/25 08:00 06/01/25 08:00
I&O
05/31/25 06/01/25 06/02/25
06:59 06:59 06:59
Intake Total 3320 / 3320 1450 / 1450 60 / 60
Output Total 20 15 / 15
Balance 3300 / 3300 1435 / 1435 60 / 60
[2025-06-01] MEDS: CIPRO 750 MG PO ×2 (11:42→19:28)
[2025-06-01] MEDS: FLAGYL 500 MG PO ×2 (11:44→19:28)
--- NOTE | 2025-06-01 12:53 | CM ---
CM following re: discharge planning.
Reviewed pt's chart.
Per MD, advancing diet. Continue antibiotics, continue supportive care.
[facility] liaison following.
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
Please fax discharge instructions to [facility] at [phone].
D/C plan: home with [facility] and family support.
CM will follow with discharge plan updates as hospitalization progresses
[2025-06-01 16:00] VITALS: BP 142/78
[2025-06-01 23:00] VITALS: BP 136/76
[2025-06-02] MEDS: ROXICODONE 5 MG PO ×4 (05:55→23:16)
[2025-06-02 06:11] LABS: Hematocrit 30.7 % (39.0-52.0); Hemoglobin 9.9 g/dL (13.0-18.0); Mean Corp Hgb Conc. 32.2 g/dL (33.0-37.0); Mean Corpuscular Volume 92.7 fL (80.0-94.0); Nucleated Red Blood Cells % 0 % (-); Platelet Count 543 10^3/uL (130-400); Red Cell Dist. Width 15.0 % (11.5-14.5)
[2025-06-02 06:35] LABS: ALT (SGPT) 10 U/L (0-50); AST (SGOT) 15 U/L (17-59); Albumin 2.6 g/dl (3.5-5.0); Alkaline Phosphatase 105 U/L (38-126); Blood Urea Nitrogen 5 mg/dl (9-20); Calcium 8.8 mg/dl (8.4-10.2); Carbon Dioxide 31 mmol/L (22-30); Chloride 104 mmol/L (98-107); Estimated Creatinine Clearance 76 ml/min; Glucose 96 mg/dl (70-99); Potassium 4.3 mmol/L (3.5-5.1); Sodium 138 mmol/L (135-145); Total Protein 5.1 g/dl (6.3-8.2); eGFR > 60.00
[2025-06-02] MEDS: CIPRO 750 MG PO ×2 (07:36→19:15)
[2025-06-02] MEDS: HEPARIN 5000 UNITS SC ×2 (07:36→19:16)
[2025-06-02] MEDS: FLAGYL 500 MG PO ×2 (07:36→19:15)
[2025-06-02 08:24] VITALS: BP 135/73
--- NOTE | 2025-06-02 10:00 | W.PN.GS2 ---
Today's Communication / Plan
-
Repeat CBC, possible DC today versus further monitoring
Assessment / Plan
-
Patient is a 60 yo M p/w abdominal pain for the last [address] imaging with intraabdominal abscesses noted; posterior pelvis of 9 x 4.9cm, unclear if communicating with a 3.7cm abscess in the upper pelvis which contains gas and possibly oral contrast administered prior the study. There is an upper pelvic
abscess is adjacent to a soft tissue density that is poorly defined. Reactive thickening of surrounding structures including sigmoid colon. Appendix normal.
PPD #5 IR trans-gluteal drainage with removal of 130 cc bloody purulent output initially
Micro: Strep viridans, Morganella
Repeat Ct on 05/30: The pelvic abscess nearly completely resolved. Continued residual sigmoid inflammation and wall thickening but contrast passes through the region without extravasation. Prior 2 small abscesses stable/improving. There does not
appear to be a 6.5 cm abscess as described it is closer to 3.5 cm. Confirmed with interventional radiology that there does not appear to be any residual collections amenable to IR drainage.
New leukocytosis, but otherwise clinically well
Plan:
-- Will repeat CBC later today
-- CW IR drain upon discharge. CM following for [facility]NA arrangements
-- Abx: Zosyn, ID following
-- Final dispo as per primary team once ABX plan in place for discharge
Thus far improving without emergent surgery. No plans for surgery this admission. Discussed recommendation for interval surgery in the coming months with colonoscopy preop with patient, will plan follow up with Dr. Faustin
Time Spent
Total Time Spent with Patient (in minutes): 20
Subjective Data
-
Date of Service: June 02, 2025
Interval Events:
No acute events overnight. Slept well. Pain Controlled. Denies Nausea/Vomiting, +bowel function. Tolerating diet.
Objective Data
-
Intake and Output
06/01/25 06/02/25 06/03/25
06:59 06:59 06:59
Intake Total 1450 / 1450 1260 / 1260 480 / 480
Output Total
Balance 1435 / 1435 1240 / 1240 480 / 480
Intake:
Oral fluids 1340 / 1340 1200 / 1200 480 / 480
IV piggybacks 100 / 100 50 / 50
Amount instilled into Drain (
Total)
Left Pelvis Placed in IR
Output:
Drain Output (Total)
Left Pelvis Placed in IR
Other:
Number of approximated MODERATE 3 2
amounts of urine
Vital Signs
Temp Pulse Resp BP Pulse Ox
98.3 F 62 16 135/73 98
06/02/25 08:24 06/02/25 08:24 06/02/25 08:24 06/02/25 08:24 06/02/25 08:24
Lab Results
06/02/25 05:45
06/02/25 05:45
Calcium 8.8 mg/dl (8.4-10.2) 06/02/25 05:45
Total Bilirubin 0.2 mg/dl (0.2-1.3) 06/02/25 05:45
AST 15 U/L (17-59) L 06/02/25 05:45
ALT 10 U/L (0-50) 06/02/25 05:45
Alkaline Phosphatase 105 U/L (38-126) 06/02/25 05:45
Total Protein 5.1 g/dl (6.3-8.2) L 06/02/25 05:45
Albumin 2.6 g/dl (3.5-5.0) L 06/02/25 05:45
Physical Exam
-
GENERAL/NEURO: Awake, Alert, no distress
CHEST: Unlabored breathing on RA
ABDOMEN: Soft, Non-Tender, Non-Distended, YEVGENIY with serous output (20 cc)
Patient has a singleton catheter: No
Patient has a central line: No
[2025-06-02 11:12] LABS: Hematocrit 31.4 % (39.0-52.0); Hemoglobin 9.6 g/dL (13.0-18.0); Mean Corp Hgb Conc. 30.6 g/dL (33.0-37.0); Mean Corpuscular Volume 94.9 fL (80.0-94.0); Nucleated Red Blood Cells % 0 % (-); Platelet Count 518 10^3/uL (130-400); Red Cell Dist. Width 15.2 % (11.5-14.5)
--- NOTE | 2025-06-02 11:24 | W.PN.HOSP.TC ---
Today's Communication/Plan
-
Monitor vital signs see plan
Repeat CBC
Continue with antibiotic
Pain control
Assessment / Plan
Assessment / Plan
General: Well Developed, Well Nourished and No Apparent Distress
HEENT: NormoCephalic, Moist mucous membranes and Atraumatic
Respiratory: Clear
Cardiac: S1/S2 and Regular Rhythm; No Murmur or Rub
GI: Soft, Non Distended, Normal Bowel Sounds, +drain
Musculoskeletal: No Edema
Neuro: Nonfocal/grossly intact
Multiple rim-enhancing pelvic abscesses with possible contained perforation
Sepsis (leukocytosis, tachycardia) likely 2/2 above. Blood culture not checked on admission. Per blood culture 05/28 NGTD
-Abdominal ultrasound without any notable finding
- CT abdomen pelvis shows multiple rim-enhancing pelvic abscesses measuring up to 9 cm, 4.9 cm in the right anterior pelvis, 3.7 cm in the upper pelvis, collection in the upper pelvis also contains gas and small amount of hyperattenuating material
that may represent enteric contrast possibly for contained perforation, close proximity to small bowel loops in the lower abdomen adjacent to region of ill-defined nodular enhancing soft tissue that may represent inflammatory soft tissue phlegmon or
malignant soft tissue, wall thickening of the sigmoid colon urinary bladder may be infectious or reactive
Status post IR drainage 05/28. Follow culture. Currently growing viridans strep. ID following. Maintain drain per IR and surgery
- Leukocytosis
- Urinalysis unremarkable
Now started on clears, monitor
Started on ciprofloxacin, metronidazole which ID is planning to continue for 4 weeks and then follow-up with patient outpatient
pain control
- surgery following, repeat CT 05/30 with abscesses noted to be decreasing in size. Per surgery, hold off on operative intervention. Will need colonoscopy in near future
Needlestick injury per RN
Patient agreeable for HIV and hepatitis per protocol. results negative
Hyponatremia
Monitor
Anemia
Good iron stores, B12 and folate. Appears likely from chronic disease
History of smoking
Refusing nicotine patch
Occasional alcohol use
- No alcohol use in 2 weeks
Underweight
Full code
DVT prophylaxis�heparin
Anticipated Discharge: Within 24 hours
Subjective/Interval History
-
Date of Service: June 02, 2025
denies nausea
Objective Data
-
Labs:
Laboratory Results
06/02/25 06/02/25
05:45 10:22
WBC 13.2 H 13.0 H
Hgb 9.9 L 9.6 L
Hct 30.7 L 31.4 L
Plt Count 543 H 518 H
Sodium 138
Potassium 4.3
Chloride 104
Carbon Dioxide 31 H
BUN 5 L
Creatinine 0.8
Glucose 96
Calcium 8.8
Total Bilirubin 0.2
AST 15 L
ALT 10
Alkaline Phosphatase 105
Vital Signs:
Vital Signs
Temp Pulse Resp BP Pulse Ox
98.3 F 62 16 135/73 98
06/02/25 08:24 06/02/25 08:24 06/02/25 08:24 06/02/25 08:24 06/02/25 08:24
I&O
06/01/25 06/02/25 06/03/25
06:59 06:59 06:59
Intake Total 1450 / 1450 1260 / 1260 480 / 480
Output Total
Balance 1435 / 1435 1240 / 1240 480 / 480
[2025-06-02 15:00] VITALS: BP 130/71
[2025-06-02 23:01] VITALS: BP 147/82
[2025-06-03 06:57] VITALS: BP 140/79
[2025-06-03] MEDS: FLAGYL 500 MG PO (07:41)
[2025-06-03] MEDS: HEPARIN 5000 UNITS SC (07:41)
[2025-06-03] MEDS: CIPRO 750 MG PO (07:42)
[2025-06-03] MEDS: ROXICODONE 5 MG PO (08:14)
[2025-06-03 08:48] LABS: Hematocrit 34.8 % (39.0-52.0); Hemoglobin 10.8 g/dL (13.0-18.0); Mean Corp Hgb Conc. 31.0 g/dL (33.0-37.0); Mean Corpuscular Volume 94.3 fL (80.0-94.0); Nucleated Red Blood Cells % 0 % (-); Platelet Count 628 10^3/uL (130-400); Red Cell Dist. Width 15.3 % (11.5-14.5)
[2025-06-03 09:04] LABS: ALT (SGPT) 11 U/L (0-50); AST (SGOT) 19 U/L (17-59); Albumin 2.9 g/dl (3.5-5.0); Alkaline Phosphatase 98 U/L (38-126); Blood Urea Nitrogen 5 mg/dl (9-20); Calcium 9.1 mg/dl (8.4-10.2); Carbon Dioxide 29 mmol/L (22-30); Chloride 105 mmol/L (98-107); Estimated Creatinine Clearance 87 ml/min; Glucose 94 mg/dl (70-99); Potassium 5.2 mmol/L (3.5-5.1); Sodium 137 mmol/L (135-145); Total Protein 5.5 g/dl (6.3-8.2); eGFR > 60.00
--- NOTE | 2025-06-03 09:50 | W.PN.GS2 ---
Today's Communication / Plan
-
Dispo planning
Assessment / Plan
-
Patient is a 60 yo M p/w abdominal pain for the last [address] imaging with intraabdominal abscesses noted; posterior pelvis of 9 x 4.9cm, unclear if communicating with a 3.7cm abscess in the upper pelvis which contains gas and possibly oral contrast administered prior the study. There is an upper pelvic
abscess is adjacent to a soft tissue density that is poorly defined. Reactive thickening of surrounding structures including sigmoid colon. Appendix normal.
PPD #6 IR trans-gluteal drainage with removal of 130 cc bloody purulent output initially
Micro: Strep viridans, Morganella
Repeat Ct on 05/30: The pelvic abscess nearly completely resolved. Continued residual sigmoid inflammation and wall thickening but contrast passes through the region without extravasation. Prior 2 small abscesses stable/improving. There does not
appear to be a 6.5 cm abscess as described it is closer to 3.5 cm. Confirmed with interventional radiology that there does not appear to be any residual collections amenable to IR drainage.
New leukocytosis, but otherwise clinically well
Plan:
Okay to DC home today with IR drain.
Home antibiotic regimen per ID.
Patient to follow-up with Dr. Faustin for colonoscopy and surgical planning.
Time Spent
Total Time Spent with Patient (in minutes): 20
Subjective Data
-
Date of Service: June 03, 2025
Interval Events:
No acute events overnight. Slept well. Pain Controlled. Denies Nausea/Vomiting, +bowel function. Tolerating diet.
Objective Data
-
Intake and Output
06/02/25 06/03/25 06/04/25
06:59 06:59 06:59
Intake Total 1260 / 1260 490 / 490
Output Total 20 / 20 20 / 20
Balance 1240 / 1240 470 / 470
Intake:
Oral fluids 1200 / 1200 480 / 480
IV piggybacks 50 / 50
Amount instilled into Drain (
Total)
Left Pelvis Placed in IR
Output:
Drain Output (Total)
Left Pelvis Placed in IR
Other:
Number of approximated MODERATE 2 2
amounts of urine
Vital Signs
Temp Pulse Resp BP Pulse Ox
98 F 73 16 140/79 95
06/03/25 06:57 06/03/25 06:57 06/03/25 06:57 06/03/25 06:57 06/03/25 09:40
Lab Results
06/03/25 07:11
06/03/25 07:11
Calcium 9.1 mg/dl (8.4-10.2) 06/03/25 07:11
Total Bilirubin 0.2 mg/dl (0.2-1.3) 06/03/25 07:11
AST 19 U/L (17-59) 06/03/25 07:11
ALT 11 U/L (0-50) 06/03/25 07:11
Alkaline Phosphatase 98 U/L (38-126) 06/03/25 07:11
Total Protein 5.5 g/dl (6.3-8.2) L 06/03/25 07:11
Albumin 2.9 g/dl (3.5-5.0) L 06/03/25 07:11
Physical Exam
-
GENERAL/NEURO: Awake, Alert, no distress
CHEST: Unlabored breathing on RA
ABDOMEN: Soft, Non-Tender, Non-Distended drain with serous output
Patient has a singleton catheter: No
Patient has a central line: No
[2025-06-03] MEDS: LOKELMA 10 GRAM PO (10:23)
--- NOTE | 2025-06-03 10:27 | W.PN.HOSP.TC ---
Today's Communication/Plan
-
Monitor vitals and closely plan
Continue with Cipro and Flagyl
Dose of Lokelma
repeat BMP and CBC outpatient with PCP
Discussed with surgery, okay to discharge today
Time of discharge 37 minutes
Assessment / Plan
Assessment / Plan
General: Well Developed, Well Nourished and No Apparent Distress
HEENT: NormoCephalic, Moist mucous membranes and Atraumatic
Respiratory: Clear
Cardiac: S1/S2 and Regular Rhythm; No Murmur or Rub
GI: Soft, Non Distended, Normal Bowel Sounds, +drain
Musculoskeletal: No Edema
Neuro: Nonfocal/grossly intact
Multiple rim-enhancing pelvic abscesses with possible contained perforation
Sepsis (leukocytosis, tachycardia) likely 2/2 above. Blood culture not checked on admission. Per blood culture 05/28 NGTD
-Abdominal ultrasound without any notable finding
- CT abdomen pelvis shows multiple rim-enhancing pelvic abscesses measuring up to 9 cm, 4.9 cm in the right anterior pelvis, 3.7 cm in the upper pelvis, collection in the upper pelvis also contains gas and small amount of hyperattenuating material
that may represent enteric contrast possibly for contained perforation, close proximity to small bowel loops in the lower abdomen adjacent to region of ill-defined nodular enhancing soft tissue that may represent inflammatory soft tissue phlegmon or
malignant soft tissue, wall thickening of the sigmoid colon urinary bladder may be infectious or reactive
Status post IR drainage 05/28. Follow culture. Currently growing viridans strep. ID following. Maintain drain per IR and surgery
- Leukocytosis, improving. ok for dc from surgeyr standpoint
- Urinalysis unremarkable
Continue with diet
Started on ciprofloxacin, metronidazole which ID is planning to continue for 4 weeks and then follow-up with patient outpatient
pain control
- surgery following, repeat CT 05/30 with abscesses noted to be decreasing in size. Per surgery, hold off on operative intervention. Will need colonoscopy in near future
Needlestick injury per RN
Patient agreeable for HIV and hepatitis per protocol. results negative
Hyponatremia
Monitor
Mild hyperkalemia
Lokelma
Repeat BMP outpatient
Anemia
Good iron stores, B12 and folate. Appears likely from chronic disease
History of smoking
Refusing nicotine patch
Occasional alcohol use
- No alcohol use in 2 weeks
Underweight
Full code
DVT prophylaxis�heparin
Anticipated Discharge: Today
Subjective/Interval History
-
Date of Service: June 03, 2025
Denies nausea
Objective Data
-
Labs:
Laboratory Results
06/03/25
07:11
WBC 11.8 H
Hgb 10.8 L
Hct 34.8 L
Plt Count 628 H D
Sodium 137
Potassium 5.2 H
Chloride 105
Carbon Dioxide 29
BUN 5 L
Creatinine 0.7
Glucose 94
Calcium 9.1
Total Bilirubin 0.2
AST 19
ALT 11
Alkaline Phosphatase 98
Vital Signs:
Vital Signs
Temp Pulse Resp BP Pulse Ox
98 F 73 16 140/79 95
06/03/25 06:57 06/03/25 06:57 06/03/25 06:57 06/03/25 06:57 06/03/25 09:40
I&O
06/02/25 06/03/25 06/04/25
06:59 06:59 06:59
Intake Total 1260 / 1260 490 / 490
Output Total 20 / 20 20 / 20
Balance 1240 / 1240 470 / 470
--- NOTE | 2025-06-03 10:41 | W.DCSUMMARY ---
Discharge Summary
Discharge Data
Date of Admission: 05/27/25
Date of Discharge: 06/03/25
-
Pending Results: No
Hospital Course
60-year-old male with history of smoking, alcohol came to the hospital with abdominal pain known to have intra-abdominal abscesses on CAT scan. Patient was seen by IR and was taken for IR guided transgluteal drainage of his abscess. Patient still
had drain prior to discharge and instructed to follow-up outpatient. Cultures from the drain grew Streptococcus and Morganella. Patient was seen by factious disease and was initially started on IV antibiotic which was later transitioned to
ciprofloxacin and Flagyl per ID recommendation on discharge. Patient was instructed to follow-up with ID outpatient. Patient was also seen by surgery throughout hospitalization and since patient was improving clinically surgery was deferred. On
discharge patient was instructed to follow-up with Dr. Faustin from colorectal surgery for colonoscopy and surgical planning. Once his symptoms continue to improve, he was then discharged home with instructions to follow-up with all his physicians
outpatient.
Discharge Plan
-
Patient Disposition: Home with Home Care
Discharge Diagnosis/Procedures: Perforated diverticulitis with intraabdominal abscesses
Transgluteal drainage of abscess
Diet: Low Fiber
Activity: As tolerated
Additional Activity: Avoid dislodging drain, call your surgeon if you have any concerns or think it may have come out
Bathing Restrictions: OK to Shower
Blood Work: Repeat CBC and BMP next week with primary care provider
Other Services: VN
Wound Care: flush your drain daily, see attached handout for instructions. follow up with your surgeon for drain removal
Instructions: Low-fiber diet
Referrals:
Claudio Faustin MD [Active, ColoRectal] - in one to two weeks
Niyah Green MD [Family Provider, Internal Medicine] - in less than 1 week
Sandra Kern MD [Active, Infectious Diseases] - in one month
Prescriptions:
New
sodium chloride 0.9 % (flush) [Normal Saline Flush] Syringe
10 ml intra-catheter DAILY Qty: 300 0RF
Rx Instructions:
flush abscess drain daily with 10ml of sterile saline
metronidazole 500 mg Tablet
500 mg PO BID Qty: 60 0RF
acetaminophen [Tylenol Extra Strength] 500 mg Tablet
1,000 mg PO Q6HPRN PRN (Reason: mild pain/fever>101) Qty: 0 0RF
oxycodone 5 mg Tablet
5 mg PO Q4HPRN PRN (Reason: moderate to severe pain) Qty: 20 0RF
Probiotic 10 billion cell capsule
10,000 mmu cells PO DAILY Qty: 30 0RF
ciprofloxacin HCl 750 mg tablet
750 mg PO BID Qty: 60 0RF
Continued
therapeutic multivitamin Tablet
1 tab PO DAILY
ascorbic acid (vitamin C) 500 mg Tablet
500 mg PO DAILY
calcium carbonate [Tums] 200 mg calcium (500 mg) Tablet,Chewable
200 mg PO DAILYPRN PRN (Reason: stomachache)
Discharge Orders:
Discharge Patient (As Directed); Ordered 06/03/25
Ordered By: Ethan Tapia
Discharge Date and Time
Discharge Date/Time: 06/03/25 13:55
Print Language: YI
[2025-06-03 11:21] VITALS: BP 110/77
--- NOTE | 2025-06-03 11:28 | CM ---
CM following re: discharge planning.
Reviewed pt's chart.
Discharge order noted. Pt is aware and he stated his brother is coming to transport home.
Pt lives alone in 1 story home and pt is independent in all areas [employer].
Please fax discharge instructions to [facility] at [phone].
D/C plan: home with [facility] and family support.
[2025-06-03] MEDS: TYLENOL 1000 MG PO (12:36)
== END 2025-06-03 13:55 | disposition home health service (06) | DRG 871 ==
LOC: 2 SOUTH 13:41
PROVIDERS: Physician Assistant; Radiology Vascular & Interventional Radiology; Registered Nurse; ADMITTING PHYSICIAN Hospitalist; ATTENDING PHYSICIAN Internal Medicine; EMERGENCY PHYSICIAN Emergency Medicine; FAMILY PHYSICIAN Internal Medicine; OTHER PHYSICIAN Student in an Organized Health Care Education/Training Program; OTHER PHYSICIAN Surgery
PROC: 0W9J30Z Drainage of Pelvic Cavity with Drainage Device, Percutaneous Approach (ICD-10-PCS; 2025-05-28)
DX: A41.9 Sepsis, unspecified organism (principal); K65.1 Peritoneal abscess; K57.20 Diverticulitis of large intestine with perforation and abscess without bleeding; E87.1 Hypo-osmolality and hyponatremia; Z68.1 Body mass index [BMI] 19.9 or less, adult; F17.210 Nicotine dependence, cigarettes, uncomplicated; E87.5 Hyperkalemia; R63.6 Underweight
CPT/HCPCS: 49406; 74018; 74177; 76705; 80053; 81003; 81015; 82378; 82607; 82728; 82746; 83540; 83550; 83690; 84134; 84425; 84466; 84478; 85025; 85610; 86301; 86803; 87040; 87070; 87077; 87186; 87205; 87340; 87389; 88112; 88305; 99152; 99153; 99285; Q9967

== ENCOUNTER → 2025-07-02 12:44 | Outpatient (REF) | payer OTHER, SELFPAY | LOC: RAD 12:44 | PROVIDERS: ATTENDING PHYSICIAN Surgery; FAMILY PHYSICIAN Student in an Organized Health Care Education/Training Program | DX: K57.20 Diverticulitis of large intestine with perforation and abscess without bleeding (principal) | CPT/HCPCS: 74177; Q9967 ==

== ENCOUNTER → 2025-07-06 08:55 | Outpatient (REF) | payer OTHER, SELFPAY ==
--- NOTE | 2025-07-06 09:43 | PN.IRAD.UPD ---
Update Note - IRAD
- -
Left transgluteal catheter removes . Area cleaned with chloraprep. New clean,dry dressing placed over site. Patient tolerated procedure well.
== END ==
LOC: RADI 08:55
PROVIDERS: ATTENDING PHYSICIAN Student in an Organized Health Care Education/Training Program; REFERRING PHYSICIAN Surgery
DX: Z46.82 Encounter for fitting and adjustment of non-vascular catheter (principal)